=== PATIENT | female | born 1965 | race Caucasian/White ===

== ENCOUNTER → 2020-03-04 13:44 | Outpatient (BNVA) | payer MEDICAID, SELFPAY | PROVIDERS: Family Provider Nurse Practitioner Family; Visit Provider Specialist | DX: G40.309 Generalized idiopathic epilepsy and epileptic syndromes, not intractable, without status epilepticus (principal); K76.0 Fatty (change of) liver, not elsewhere classified | CPT/HCPCS: 99213 ==

== ENCOUNTER → 2020-03-12 13:04 | Outpatient (BNVA) | payer MEDICAID, SELFPAY | PROVIDERS: Family Provider Nurse Practitioner Family; Visit Provider Specialist | DX: G40.309 Generalized idiopathic epilepsy and epileptic syndromes, not intractable, without status epilepticus (principal) | CPT/HCPCS: 95816 ==

== ENCOUNTER 2020-08-12 18:56 | Emergency (ER) | payer MEDICAID, SELFPAY ==
[2020-08-12 19:04] VITALS: BP 140/99; PULSE 104; RESP 18; TEMP 36.4; O2SAT 99; BMI 25.7
--- NOTE | 2020-08-12 19:32 | XR_ITS ---
WS: [id number] Portable AP upright chest, 08/12/2020 Clinical Data: sob Comparison: None. Findings: No nodules, masses or effusions are seen. The heart is normal. The pulmonary vascularity is not increased. No pneumonia or pneumothorax is seen. XR/XR chest 1V portable [id number] Impression: Negative chest.
--- NOTE | 2020-08-12 20:40 | W.ED.COVID ---
HPI - COVID General: Chief Complaint: COVID symptoms Stated Complaint: SOB,weakness,nausea,vomiting Time Seen by Provider: 08/12/20 20:39 Triage information: Has fever, cough or shortness of breath. Exposure to COVID + person last 14 days History of Present Illness: HPI Narrative: Patient is a 55-year-old female comes to the ED with upper respiratory symptoms. Patient says symptoms started about 9 days ago. Her son lives with her tested positive for COVID-19, but patient has not testing yet. She has had symptoms of nasal drainage and congestion, dry cough, nausea/emesis and diarrhea. Patient says she is vomited multiple times over the last 9 days. She says today she felt the worst she has felt the last 9 days. She says she felt a little short of breath and felt like her heart was racing a little. She describes her shortness of breath as feeling like a weights on her chest. She says she has not been eating and drinking as much since she has been feeling sick. Denies any dysuria or hematuria or blood in the stool. Endorses having a low fever 1 day out of the last 9 days. Denies history of blood clots. MD complaint: reported COVID exposure (Her son who she lives with tested positive) COVID 19 common symptoms: positive chills, non-productive cough, dyspnea, throat pain, nasal congestion, nausea, vomiting and diarrhea; negative fever(s), productive cough, fatigue or headache(s) COVID 19 other sytmptoms: negative chest pain COVID Results: SARS-CoV-2 RNA (RT-PCR) Pending 08/12/20 21:20 08/12/20 Review of Systems Const: Reports: chills and change in appetite (Decreased); Denies: fever(s) or fatigue Eyes: Denies: change in vision or eye discomfort ENMT: Reports: throat pain, nasal discharge and nasal congestion; Denies: odynophagia Card: Reports: palpitations (Episode of heart racing during the day today. It has since resolved.); Denies: chest pain, edema, swelling of feet/ankles, dyspnea on exertion or orthopnea Resp: Reports: dyspnea and non-productive cough; Denies: productive cough GI: Reports: nausea, vomiting and diarrhea; Denies: abdominal pain, constipation or hematochezia : Denies: flank pain, dysuria or hematuria Musc: Denies: neck pain, back pain or extremity swelling Skin/Breast: Denies: rash or new lesions Neuro: Denies: headache(s), numbness in extremities or weakness in extremities PFSH ED PFSH: Family History Other CAD (coronary artery disease) Hypertension Social History Smoking and tobacco status: never smoked Physical Exam Const: COMMON NORMALS: no acute distress, patient oriented x3, healthy appearing and alert GENERAL APPEARANCE: cooperative and comfortable HENMT: COMMON NORMALS: normocephalic and Normal external nose present HEAD & SCALP: normocephalic NOSE: Normal external nose present; no Nasal discharge present MOUTH: moist mucous membranes abnormal (mild) THROAT: posterior oropharynx normal and uvula midline Eye: COMMON NORMALS: Equal, round and reactive pupils present PUPIL: Yes Equal, round and reactive pupils present Neck/C-Spine: COMMON NORMALS: supple GENERAL: Yes normal visual inspection Resp: COMMON NORMALS: normal respiratory effort, No retractions, No use of accessory muscles and clear to auscultation bilaterally EFFORT & INSPECTION: Yes able to speak in complete sentences, No tachypneic, No respiratory distress and No labored AUSCULTATION: clear to auscultation bilaterally Cardio: COMMON NORMALS: regular rate, regular rhythm, S1 normal heart sound present, S2 normal heart sound present, No gallops present (Cardio), No clicks present (Cardio), No murmurs present (Cardio) and Peripheral pulses 2+ throughout RATE: regular rate RHYTHM: regular rhythm HEART SOUNDS: S1 normal heart sound present and S2 normal heart sound present PERIPHERAL PULSES: Peripheral pulses 2+ throughout GI: COMMON NORMALS: Normal to inspection, nondistended, normoactive bowel sounds present, Soft to palpation, non-tender and no masses PALPATION: Yes Soft to palpation : COMMON NORMALS: Yes no CVA tenderness BLADDER/KIDNEY EXAM: Yes no CVA tenderness Back/Pelvis: COMMON NORMALS: no CVA tenderness Extremity: COMMON NORMALS: normal to inspection and no pedal edema Neuro: COMMON NORMALS: patient oriented x3 and moves all extremities SENSORIUM/ORIENTATION: Yes alert Skin: GENERAL SKIN EXAM: dry skin Course ED course: Patient is a 55-year-old female comes to the ED with shortness of breath, nausea and vomiting for the past 9 days. She describes shortness of breath is a weight on her chest. Patient signed room she lives with tested positive for COVID-19. Physical exam showed some dry mucous membranes and patient's lungs were clear to auscultation bilaterally and no signs of respiratory distress. CBC and CMP were unremarkable. Lipase 62. Chest x-ray showed no acute findings. EKG showed normal sinus tachycardia with no ST segment elevation or depression seen. Troponin 6, [facility] Cov[facility] lab pending. Patient's heart rate was tacky and around the 110-120 range when I was checking on her. O2 sat 99% on room air and respirations 16. With IV fluids and Zofran patient said her symptoms were improving but she still had some mild shortness of breath but is improving. I then ordered a D-dimer to rule out PE. D-dimer was not elevated and at 0.52. Patient says she is feeling better and I discharged her with a diagnosis of viral syndrome and close contact to Covid positive patient. She was given self quarantine instructions and told to contact [facility] in the next 2 to 3 days or [facility] will contact her about Covid results. I sent her home with a prescription for Zofran for nausea. Return to ED precautions given. Follow-up with PCP in 7 to 10 days for reevaluation. Patient understood and agreed with plan. Reevaluation(s): Reevaluation #1: After IV fluids and Zofran patient says her symptoms have improved. Shortness of breath has improved but it is still there. Her heart rate was sitting around 110-120 when I was in the room. I told her going to add D-dimer lab to rule out PE. Time: 22:38 Vital Signs: Vital signs: Vital Signs Temperature 97.5 F L 08/12/20 19:04 Pulse Rate 89 08/12/20 23:52 Respiratory Rate 16 08/12/20 23:52 Blood Pressure 123/76 08/12/20 23:52 Pulse Oximetry 99 08/12/20 23:52 MDM - COVID Lab Data Attestation: I reviewed the patient's lab results. Result diagrams: 08/12/20 21:20 08/12/20 21:20 Labs: Lab Results 08/12/20 08/12/20 08/12/20 Range/Units 21:20 21:20 21:20 WBC 8.5 (4.0-10.0) 10^3/uL RBC 4.71 (4.1-5.3) 10^6/uL Hgb 13.1 (11.5-15.3) g/dL Hct 40.7 (37.0-47.0) % MCV 86.4 (81-99) fL MCH 27.8 L (28.0-34.0) pg MCHC 32.2 (30.0-36.0) g/dL RDW 12.6 (12.1-15.1) % Plt Count 377 (130-400) 10^3/cmm MPV 9.2 (7.4-10.4) fL Neut % (Auto) 63.3 % Lymph % (Auto) 28.6 % [place] % (Auto) 4.3 % Eos % (Auto) 2.9 % Baso % (Auto) 0.5 % Neut # (Auto) 5.39 (1.8-7.7) 10^3/uL Lymph # (Auto) 2.4 (0.8-4.8) 10^3/uL [place] # (Auto) 0.4 (0.2-0.9) 10^3/uL Eos # (Auto) 0.3 (0.0-0.8) 10^3/uL Baso # (Auto) 0.0 (0.0-0.1) 10^3/uL Nucleated RBC % (auto) 0 % Nucleated RBCs # 0.0 /100WBC D-Dimer (0-0.59) ug/mIFEU Sodium 138 (136-145) mmol/L Potassium 3.7 (3.5-5.1) mmol/L Chloride 103 (98-107) mmol/L Carbon Dioxide 26 (22-29) mmol/L Anion Gap 12.7 (5-19) BUN 12 (6-20) mg/dL Creatinine 0.6 (0.5-0.9) mg/dL GFR Calculation 104.6 (90-130) mL/min Glucose 98 (65-115) mg/dL Calculated Osmolality 286 (285-295) mOsm/kg Calcium 9.7 (8.5-10.5) mg/dL Total Bilirubin 0.2 (0.15-1.2) mg/dL AST 17 (0-32) U/L ALT 17 (0-33) U/L Alkaline Phosphatase 139 H (35-105) IU/L Troponin T Gen 5 ng/L 6 (0-10) ng/L Total Protein 6.9 (6.6-8.7) g/dL Albumin 4.5 (3.5-5.2) g/dL Globulin 2.4 (1.3-4.6) g/dL Lipase 62 H (13-60) U/L HCG, Qual (Negative) 08/12/20 08/12/20 Range/Units 21:20 21:20 WBC (4.0-10.0) 10^3/uL RBC (4.1-5.3) 10^6/uL Hgb (11.5-15.3) g/dL Hct (37.0-47.0) % MCV (81-99) fL MCH (28.0-34.0) pg MCHC (30.0-36.0) g/dL RDW (12.1-15.1) % Plt Count (130-400) 10^3/cmm MPV (7.4-10.4) fL Neut % (Auto) % Lymph % (Auto) % [place] % (Auto) % Eos % (Auto) % Baso % (Auto) % Neut # (Auto) (1.8-7.7) 10^3/uL Lymph # (Auto) (0.8-4.8) 10^3/uL [place] # (Auto) (0.2-0.9) 10^3/uL Eos # (Auto) (0.0-0.8) 10^3/uL Baso # (Auto) (0.0-0.1) 10^3/uL Nucleated RBC % (auto) % Nucleated RBCs # /100WBC D-Dimer 0.52 (0-0.59) ug/mIFEU Sodium (136-145) mmol/L Potassium (3.5-5.1) mmol/L Chloride (98-107) mmol/L Carbon Dioxide (22-29) mmol/L Anion Gap (5-19) BUN (6-20) mg/dL Creatinine (0.5-0.9) mg/dL GFR Calculation (90-130) mL/min Glucose (65-115) mg/dL Calculated Osmolality (285-295) mOsm/kg Calcium (8.5-10.5) mg/dL Total Bilirubin (0.15-1.2) mg/dL AST (0-32) U/L ALT (0-33) U/L Alkaline Phosphatase (35-105) IU/L Troponin T Gen 5 ng/L (0-10) ng/L Total Protein (6.6-8.7) g/dL Albumin (3.5-5.2) g/dL Globulin (1.3-4.6) g/dL Lipase (13-60) U/L HCG, Qual Negative (Negative) COVID Results: SARS-CoV-2 RNA (RT-PCR) Pending 08/12/20 21:20 08/12/20 Imaging Data CXR: Attestation: I personally reviewed and interpreted this imaging study as follows: My impression: Chest x-ray showed no acute findings. EKG Data EKG 1: Attestation: I personally reviewed and interpreted this EKG as follows: EKG interpretation date: 08/12/20 Interpretation: Sinus tachycardia, heart rate 106, no ST segment elevation or depression seen. Discharge Plan Discharge Patient Disposition: Home Clinical Impression: Viral syndrome, Close exposure to severe acute respiratory syndrome coronavirus 2 (SARS-CoV-2) Condition: Stable Prescriptions: New Zofran 4 mg tablet 4 mg PO Q8H Qty: 20 RF: 0 No Action multivitamin Tablet 1 tab PO DAILY RF: 0 lamotrigine [Lamictal] 100 mg tablet 100 mg PO BID Qty: 60 RF: 11 zonisamide [Zonegran] 100 mg capsule 600 mg PO DAILY 30 Days Qty: 180 RF: 11 Discharge Orders: Discharge Order (Routine); Ordered 08/12/20 Ordered By: Vince Varela Referrals: Vielka Smith, AIR SAW OPERATOR [Primary Care Provider] - Discharge Diet: Advance as tolerated Discharge Activity: Increase activity as tolerated Patient Instructions: Viral Syndrome (ED) Activity Restrictions/Additional Instructions: Follow-up with medical provider as directed in 7-10 days. COVID testing was performed and sent to lab and results will be back in 2 to 3 days. Self quarantine for the next 3 days or up to 12 days pending on COVID testing results. [place] [facility] [place] 2 [place] 3 days to get results or [facility] will contact you with results. Take ibuprofen or Tylenol for fevers. Drink plenty of fluids and stay hydrated. Symptom management with [id number] cough and nasal decongestant meds. Return to the ER or your medical provider if condition worsens. Please read and understand discharge instructions. If any questions, please ask. Coding Level of Care Code ED Perinatal Social Worker for Rae Fwd Exam Comprehensive
--- NOTE | 2020-08-12 20:52 | ECG_ITS ---
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 Measurements Intervals Lewis Rate: 106 P: 55 NH: 189 QRS: 50 QRSD: 95 T: 7 QT: 332 QTc: 443 Interpretive Statements SINUS TACHYCARDIA LOW QRS VOLTAGE IN PRECORDIAL LEADS [QRS DEFLECTION < 1.0 mV IN CHEST LEADS] POSSIBLE RIGHT VENTRICULAR CONDUCTION DELAY [RSR (QR) IN V1/V2] NONSPECIFIC ST & T-WAVE ABNORMALITY ABNORMAL RHYTHM ECG No previous ECG available for comparison Electronically Signed On 08-14-2020 20:10:50 AVIATION SURVIVAL TECHNICIAN by Gian Otoole M.D. [id number]
[2020-08-12] MEDS: ondansetron 2 mg/ML SDV 2 mL 4 MG IVP (21:29)
[2020-08-12] MEDS: sodium chloride 0.9% 1,000 ML 999 ML IV (21:29)
[2020-08-12 21:35] VITALS: BP 129/93; PULSE 99; RESP 18; O2SAT 99
[2020-08-12 21:36] LABS: Basophils % 0.5 %; Eosinophils # 0.3 10^3/uL (0.0-0.8); Eosinophils % 2.9 %; Hematocrit 40.7 % (37.0-47.0); Hemoglobin 13.1 g/dL (11.5-15.3); Lymphocytes # 2.4 10^3/uL (0.8-4.8); Lymphocytes % 28.6 %; Mean Corpuscular HGB Conc 32.2 g/dL (30.0-36.0); Mean Corpuscular Hemoglobin 27.8 pg (28.0-34.0); Mean Corpuscular Volume 86.4 fL (81-99); Mean Platelet Volume 9.2 fL (7.4-10.4); Monocytes # 0.4 10^3/uL (0.2-0.9); Monocytes % 4.3 %; Neutrophils # 5.39 10^3/uL (1.8-7.7); Neutrophils % 63.3 %; Nucleated Red Blood Cells % 0 %; Platelet Count 377 10^3/cmm (130-400); Red Blood Count 4.71 10^6/uL (4.1-5.3); Red Cell Distribution Width 12.6 % (12.1-15.1); White Blood Count 8.5 10^3/uL (4.0-10.0)
[2020-08-12 21:54] LABS: Alanine Aminotransferase 17 U/L (0-33); Albumin Level 4.5 g/dL (3.5-5.2); Anion Gap 12.7 (5-19); Aspartate Amino Transferase 17 U/L (0-32); Blood Urea Nitrogen 12 mg/dL (6-20); Calcium 9.7 mg/dL (8.5-10.5); Carbon Dioxide 26 mmol/L (22-29); Chloride 103 mmol/L (98-107); Creatinine Clr Calc Pharmacy 102.7693; Globulin 2.4 g/dL (1.3-4.6); Glomerular Filtration Rate 104.6 mL/min (90-130); Glucose 98 mg/dL (65-115); Osmolality Calculated 286 mOsm/kg (285-295); Potassium 3.7 mmol/L (3.5-5.1); Sodium 138 mmol/L (136-145); Total Bilirubin 0.2 mg/dL (0.15-1.2); Total Protein 6.9 g/dL (6.6-8.7)
[2020-08-12 21:56] LABS: Troponin T (5th) Once 6 ng/L (0-10)
[2020-08-12 22:12] LABS: HCG, Serum Qual Negative (Negative)
[2020-08-12 22:23] LABS: Alkaline Phosphatase 139 IU/L (35-105); Lipase 62 U/L (13-60)
[2020-08-12 22:47] VITALS: BP 125/81; O2SAT 100
[2020-08-12 23:11] LABS: D Dimer 0.52 ug/mIFEU (0-0.59)
[2020-08-12 23:52] VITALS: BP 123/76; PULSE 89; RESP 16; O2SAT 99
[2020-08-15 10:28] LABS: Quest SARS-CoV-2 RNA DETECTED (NOT DETECTED)
--- NOTE | 2020-08-15 17:20 | PC.NURSE ---
Pt called and notified of positive COVID result.
== END 2020-08-12 23:53 | disposition home or self-care (01) ==
PROVIDERS: Emergency Provider Physician Assistant; PCP Nurse Practitioner Family
DX: U07.1 COVID-19 (principal)
CPT/HCPCS: 12345; 71045; 80053; 83690; 84484; 84703; 85025; 85378; 87635; 93005; 96361; 96374; 96375; 99283; 99284; J2405; J7030

== ENCOUNTER → 2021-03-03 13:54 | Outpatient (BNVA) | payer MEDICAID, SELFPAY | PROVIDERS: Visit Provider Specialist | DX: G40.309 Generalized idiopathic epilepsy and epileptic syndromes, not intractable, without status epilepticus (principal); K76.0 Fatty (change of) liver, not elsewhere classified; N64.59 Other signs and symptoms in breast | CPT/HCPCS: 99214 ==

== ENCOUNTER 2021-03-03 16:10 | Outpatient (CLI) | payer MEDICAID, SELFPAY ==
[2021-03-03 16:34] LABS: Basophils % 0.4 %; Eosinophils # 0.2 10^3/uL (0.0-0.8); Hematocrit 43.6 % (37.0-47.0); Lymphocytes # 2.4 10^3/uL (0.8-4.8); Lymphocytes % 24.7 %; Mean Corpuscular HGB Conc 32.1 g/dL (30.0-36.0); Mean Corpuscular Hemoglobin 27.9 pg (28.0-34.0); Mean Corpuscular Volume 86.9 fL (81-99); Mean Platelet Volume 9.6 fL (7.4-10.4); Monocytes # 0.5 10^3/uL (0.2-0.9); Monocytes % 4.7 %; Nucleated Red Blood Cells % 0 %; Platelet Count 317 10^3/cmm (130-400); Red Blood Count 5.02 10^6/uL (4.1-5.3); Red Cell Distribution Width 12.6 % (12.1-15.1); White Blood Count 9.9 10^3/uL (4.0-10.0)
[2021-03-03 17:28] LABS: Alanine Aminotransferase 24 U/L (0-33); Albumin Level 4.4 g/dL (3.5-5.2); Alkaline Phosphatase 153 IU/L (35-105); Anion Gap 13.9 (5-19); Aspartate Amino Transferase 22 U/L (0-32); Blood Urea Nitrogen 14 mg/dL (6-20); Calcium 8.9 mg/dL (8.5-10.5); Carbon Dioxide 24 mmol/L (22-29); Chloride 106 mmol/L (98-107); Glomerular Filtration Rate 87.5 mL/min (90-130); Glucose 91 mg/dL (65-115); Osmolality Calculated 290 mOsm/kg (285-295); Potassium 3.9 mmol/L (3.5-5.1); Sodium 140 mmol/L (136-145); Thyroid Stimulating Hormone 3.59 uIU/mL (0.27-4.20); Total Bilirubin 0.3 mg/dL (0.15-1.2); Total Protein 7.4 g/dL (6.6-8.7)
== END 2021-03-03 16:11 | disposition home or self-care (01) ==
PROVIDERS: Visit Provider Specialist
DX: G40.309 Generalized idiopathic epilepsy and epileptic syndromes, not intractable, without status epilepticus (principal)
CPT/HCPCS: 36415; 80053; 84443; 85025

== ENCOUNTER → 2021-03-24 12:56 | Outpatient (BNVA) | payer MEDICAID, SELFPAY | PROVIDERS: Visit Provider Specialist | DX: G40.309 Generalized idiopathic epilepsy and epileptic syndromes, not intractable, without status epilepticus (principal) | CPT/HCPCS: 95816 ==

== ENCOUNTER 2021-03-25 13:06 | Outpatient (CLI) | payer MEDICAID, SELFPAY ==
--- NOTE | 2021-03-25 13:00 | MM_ITS ---
WS: [id number] SCREENING DIGITAL MAMMOGRAM WITH CAD HISTORY: N64.59 - Other signs and symptoms in breast COMPARISON: 06/30/2016 Bilateral CC and MLO views submitted. Computer aided detection analyzed. Breast composition: The breasts are almost entirely fatty. No suspicious masses, microcalcifications or architectural distortion. MM/[place] [id number] IMPRESSION: BI-RADS: 1-Negative FOLLOW UP: 1 Year Follow-up
--- NOTE | 2021-03-25 13:45 | MR_ITS ---
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 COMPARISON: 05/24/2013 TECHNIQUE: Diffusion imaging, multiplanar T1, T2 and FLAIR imaging obtained. No evidence for acute infarct or hemorrhage. Curtis-white matter differentiation is normal. There are a few scattered T2 and FLAIR signal hyperintensities in the white matter. Linear area of in creased signal in the LEFT tirado radiata was also present on the prior study. No polyps gyral or joaquin rogyria. No ectopia of the curtis matter. Symmetric stable appearance of the temporal horns bilaterally . No sclerosis or atrophy. Ventricles and extra-axial spaces are normal. No inferior displacement of cerebellar tonsils. The sella turcica and pituitary gland are unremarkabl e. Dural venous sinuses and [place] demonstrate no abnormality on this unenhanced studies. Paranasal sinuses: Clear. Mastoid air cells: Normal. Calvarium and scalp: Intact. MR/MR head wo con* [id number] IMPRESSION: 1. Stable noncontrast head CT since 05/24/2013. LEFT parietal subcortical white matter linear T2 hyperintense is unchanged. 2. No hemorrhage or volume loss. 3. Symmetric appearance of the hippocampal formations.
== END 2021-03-25 13:07 | disposition home or self-care (01) ==
LOC: RADSHAW 13:09
PROVIDERS: Visit Provider Specialist
DX: Z12.31 Encounter for screening mammogram for malignant neoplasm of breast (principal); G40.309 Generalized idiopathic epilepsy and epileptic syndromes, not intractable, without status epilepticus
CPT/HCPCS: 70551; 77067

== ENCOUNTER → 2021-03-29 09:17 | Outpatient (BNVA) | payer MEDICAID, SELFPAY | PROVIDERS: Visit Provider Specialist | DX: G40.309 Generalized idiopathic epilepsy and epileptic syndromes, not intractable, without status epilepticus (principal); Z71.89 Other specified counseling | CPT/HCPCS: 99214; 99215 ==

== ENCOUNTER 2021-04-18 09:40 | Emergency (ER) | payer MEDICAID, SELFPAY ==
--- NOTE | 2021-04-18 09:44 | XRR_ITS ---
PROCEDURE INFORMATION: Exam: XR Chest Exam date and time: 04/18/2021 9:44 AM Age: 55 years old Clinical indication: Pain; Chest pressure; Additional info: Cough TECHNIQUE: Imaging protocol: XR of the chest. Views: 1 view. COMPARISON: CR XR chest 1V portable [id number] 08/12/2020 7:32 PM FINDINGS: Lungs: Unremarkable. No consolidation. Pleural spaces: Unremarkable. No pleural effusion. No pneumothorax. Heart/Mediastinum: Unremarkable. No cardiomegaly. Bones/joints: Unremarkable. XR/XR chest 1V portable [id number] IMPRESSION: No acute findings.
[2021-04-18 09:45] VITALS: BP 161/101; PULSE 103; RESP 18; TEMP 37.1; O2SAT 100; BMI 26.6
--- NOTE | 2021-04-18 09:45 | ECG_ITS ---
[facility] Test Date: 2021-04-18 Pat Name: Desiree Koch Department: Room: Gender: Female Logistics Engineering Manager: : 1965 Requested By: Shahzad Huerta Order Number: [id number] Samanta MD: Sharon Reaves M.D. Measurements Intervals Max Rate: 89 P: 58 AL: 186 QRS: 34 QRSD: 89 T: 30 QT: 369 QTc: 450 Interpretive Statements SINUS RHYTHM NONSPECIFIC ST & T-WAVE ABNORMALITY Compared to ECG 08/12/2020 21:27:55 Sinus tachycardia no longer present T-wave abnormality still present Electronically Signed On 04-18-2021 20:09:57 CDT by Sharon Reaves M.D. [id number]
--- NOTE | 2021-04-18 09:53 | W.ED.GENADLT ---
HPI - General Adult General: Chief complaint: Chest Pain Stated complaint: Chest Pain, weak, Time Seen by Provider: 04/18/21 09:49 History of Present Illness: HPI narrative: This patient is a 55-year-old female who presents to the emergency department complaint of irregular heartbeat chest pain. Shortness of breath. Patient states that happened last night when she getting up to go the bathroom. Then happened again this morning and felt sudden issue or that she could not breathe well and her heart was beating fast. Patient has a long history of seizures but does not have any cardiac history. Will do medical evaluation treat as needed Onset (ago): minute(s) Location: chest Radiation: non-radiation Severity: moderate Associated symptoms: Reports chest pain and palpitations; Deny dyspnea, headache(s), nausea, rash or vomiting Review of Systems General: Reports: 10 or more systems reviewed and unremarkable except in HPI and below Const: Denies: fever(s), chills, body aches or fatigue Eyes: Denies: change in vision or blurry vision ENMT: Denies: throat pain, hoarseness or mouth pain Card: Reports: chest pain and palpitations; Denies: irregular heart rhythm, edema, swelling of feet/ankles or lightheadedness Resp: Denies: dyspnea, productive cough, non-productive cough, wheezing or pain on inspiration GI: Denies: abdominal pain, nausea or vomiting : Denies: flank pain, difficulty voiding, dysuria, urinary frequency, urinary urgency or urinary hesitancy Musc: Denies: neck pain, back pain, extremity pain, extremity swelling, joint pain, joint swelling, joint redness, joint warmth or limited range of motion Skin/Breast: Denies: rash, pruritus, erythema or skin tenderness Neuro: Denies: headache(s), numbness in extremities or weakness in extremities Psych: Denies: anxiety or depression PFSH ED PFSH: Family History Other CAD (coronary artery disease) Hypertension Social History Smoking and tobacco status: never smoked Alcohol intake: never History of recent travel: No Physical Exam Const: COMMON NORMALS: no acute distress, average body habitus, patient oriented x3, no limitations, healthy appearing, alert and well nourished HENMT: COMMON NORMALS: normocephalic, atraumatic, hearing grossly normal bilaterally, external ears normal, EAC's normal, TM's normal bilaterally, Normal external nose present, Normal nasal mucous membranes and turbinates present, moist oral mucous membranes, oropharynx normal, dentition normal and gingiva normal HEAD & SCALP: normocephalic and atraumatic NOSE: Normal external nose present and Normal nasal mucous membranes and turbinates present EXTERNAL EAR: Yes external ears normal EXTERNAL AUDITORY CANAL: EAC's normal TYMPANIC MEMBRANE: TM's normal bilaterally Neck/C-Spine: COMMON NORMALS: full ROM, no lymphadenopathy, supple, no meningeal signs, no JVD, Thyroid normal and No carotid bruits THYROID: Thyroid normal Chest: COMMONS NORMALS: normal inspection of the chest, normal palpation of entire chest wall, normal inspection of the breasts and normal palpation of the breasts Breast/axilla inspection: Yes normal inspection of the breasts BREAST/AXILLA PALPATION: Yes normal palpation of the breasts Resp: COMMON NORMALS: normal respiratory effort, No retractions, No use of accessory muscles, clear to auscultation bilaterally and percussion normal AUSCULTATION: clear to auscultation bilaterally PERCUSSION: percussion normal Cardio: COMMON NORMALS: no JVD, regular rate, regular rhythm, S1 normal heart sound present, S2 normal heart sound present, No gallops present (Cardio), No clicks present (Cardio), No murmurs present (Cardio), No rub (Cardio) and Peripheral pulses 2+ throughout RATE: regular rate RHYTHM: regular rhythm HEART SOUNDS: S1 normal heart sound present and S2 normal heart sound present PERIPHERAL PULSES: Peripheral pulses 2+ throughout GI: COMMON NORMALS: Normal to inspection, nondistended, normoactive bowel sounds present, Soft to palpation, non-tender, No hepatosplenomegaly present, no masses and no bruits PALPATION: Yes Soft to palpation and Yes No hepatosplenomegaly present Back/Pelvis: COMMON NORMALS: thoracic and lumbar spine normal to inspection, no thoracic nor lumbar tenderness, thoraco-lumbar ROM normal and straight leg raise negative bilaterally Extremity: COMMON NORMALS: normal to inspection, full ROM, capillary refill normal, no joint enlargement, no clubbing, cyanosis or edema, no calf tenderness and no pedal edema Neuro: COMMON NORMALS: patient oriented x3 SENSORIUM/ORIENTATION: Yes alert MENINGEAL SIGNS: Yes no meningeal signs Course ED course: Negative evaluation in the emergency department for any acute findings. Patient is to continue all medications and follow-up with PCP in 2 to 3 days. Patient is discharged Vital Signs: Vital signs: Vital Signs Temperature 98.7 F 04/18/21 09:45 Pulse Rate 103 H 04/18/21 09:45 Respiratory Rate 18 04/18/21 09:45 Blood Pressure 161/101 04/18/21 09:45 Pulse Oximetry 96 04/18/21 11:00 MDM - General Adult MDM Narrative: Medical decision making narrative: This patient is a 55-year-old female who presents to the emergency department complaint of irregular heartbeat chest pain. Shortness of breath. Patient states that happened last night when she getting up to go the bathroom. Then happened again this morning and felt sudden issue or that she could not breathe well and her heart was beating fast. Patient has a long history of seizures but does not have any cardiac history. Will do medical evaluation treat as needed Negative evaluation in the emergency department for any acute findings. Patient is to continue all medications and follow-up with PCP in 2 to 3 days. Patient is discharged Medical Records: Attestation: I reviewed the patient's medical records. Lab Data: Attestation: I reviewed the patient's lab results. Labs: Lab Results 04/18/21 04/18/21 04/18/21 Range/Units 10:50 10:50 10:55 WBC 9.7 (4.0-10.0) 10^3/ uL RBC 4.69 (4.1-5.3) 10^6/u L Hgb 13.3 (11.5-15.3) g/dL Hct 41.0 (37.0-47.0) % MCV 87.4 (81-99) fL MCH 28.4 (28.0-34.0) pg MCHC 32.4 (30.0-36.0) g/dL RDW 12.8 (12.1-15.1) % Plt Count 279 (130-400) 10^3/c mm MPV 9.8 (7.4-10.4) fL Neut % (Auto) 75.8 % Lymph % (Auto) 18.1 % [place] % (Auto) 3.8 % Eos % (Auto) 1.8 % Baso % (Auto) 0.3 % Neut # (Auto) 7.35 (1.8-7.7) 10^3/u L Lymph # (Auto) 1.8 (0.8-4.8) 10^3/u L [place] # (Auto) 0.4 (0.2-0.9) 10^3/u L Eos # (Auto) 0.2 (0.0-0.8) 10^3/u L Baso # (Auto) 0.0 (0.0-0.1) 10^3/u L Nucleated RBC % (a uto) 0 % Nucleated RBCs # 0.0 /100WBC PT (12.1-14.9) SECO NDS INR (0.8-1.2) APTT (23.9-36.7) SECO NDS D-Dimer (0-0.59) ug/mIFE U Sodium (136-145) mmol/L Potassium (3.5-5.1) mmol/L Chloride (98-107) mmol/L Carbon Dioxide (22-29) mmol/L Anion Gap (5-19) BUN (6-20) mg/dL Creatinine (0.5-0.9) mg/dL GFR Calculation (90-130) mL/min Glucose (65-115) mg/dL Calculated Osmolal ity (285-295) mOsm/k g Calcium (8.5-10.5) mg/dL Total Bilirubin (0.15-1.2) mg/dL AST (0-32) U/L ALT (0-33) U/L Alkaline Phosphata se (35-105) IU/L Troponin T Baselin e (0-10) ng/L NT-Pro-B Natriuret Pep (0-125) pg/mL Total Protein (6.6-8.7) g/dL Albumin (3.5-5.2) g/dL Globulin (1.3-4.6) g/dL Urine Color Straw (Yellow) Urine Appearance Clear (CLEAR) Urine pH 6 (5-7) Ur Specific Gravit y 1.015 (1.005-1.030) Urine Protein Neg (Negative) Urine Glucose (UA) Norm (Normal) Urine Ketones Negative (Negative) Urine Blood Neg (Negative) Urine Nitrate Negative (Negative) Urine Bilirubin Neg (Negative) Urine Urobilinogen Norm (Negative) mg/dL Ur Leukocyte [place] ase Negative (Negative) Urine Opiates Scre en Negative (Negative) ng/mL Ur Barbiturates Sc reen Negative (Negative) ng/mL Ur Phencyclidine S crn Negative (Negative) ng/mL Ur Amphetamines Sc reen Negative (Negative) ng/mL U Benzodiazepines Scrn Negative (Negative) ng/mL Urine Cocaine Scre en Negative (Negative) ng/mL U Marijuana (THC) Screen Positive H (Negative) ng/mL 04/18/21 04/18/21 04/18/21 Range/Units 10:55 10:55 10:55 WBC (4.0-10.0) 10^3/ uL RBC (4.1-5.3) 10^6/u L Hgb (11.5-15.3) g/dL Hct (37.0-47.0) % MCV (81-99) fL MCH (28.0-34.0) pg MCHC (30.0-36.0) g/dL RDW (12.1-15.1) % Plt Count (130-400) 10^3/c mm MPV (7.4-10.4) fL Neut % (Auto) % Lymph % (Auto) % [place] % (Auto) % Eos % (Auto) % Baso % (Auto) % Neut # (Auto) (1.8-7.7) 10^3/u L Lymph # (Auto) (0.8-4.8) 10^3/u L [place] # (Auto) (0.2-0.9) 10^3/u L Eos # (Auto) (0.0-0.8) 10^3/u L Baso # (Auto) (0.0-0.1) 10^3/u L Nucleated RBC % (a uto) % Nucleated RBCs # /100WBC PT 13.40 (12.1-14.9) SECO NDS INR 0.99 (0.8-1.2) APTT 31.5 (23.9-36.7) SECO NDS D-Dimer 0.41 (0-0.59) ug/mIFE U Sodium 138 (136-145) mmol/L Potassium 3.7 (3.5-5.1) mmol/L Chloride 107 (98-107) mmol/L Carbon Dioxide 23 (22-29) mmol/L Anion Gap 11.7 (5-19) BUN 15 (6-20) mg/dL Creatinine 0.7 (0.5-0.9) mg/dL GFR Calculation 87.5 L (90-130) mL/min Glucose 103 (65-115) mg/dL Calculated Osmolal ity 287 (285-295) mOsm/k g Calcium 9.0 (8.5-10.5) mg/dL Total Bilirubin 0.3 (0.15-1.2) mg/dL AST 14 (0-32) U/L ALT 13 (0-33) U/L Alkaline Phosphata se 145 H (35-105) IU/L Troponin T Baselin e 6 (0-10) ng/L NT-Pro-B Natriuret Pep 210 H (0-125) pg/mL Total Protein 6.5 L (6.6-8.7) g/dL Albumin 4.3 (3.5-5.2) g/dL Globulin 2.2 (1.3-4.6) g/dL Urine Color (Yellow) Urine Appearance (CLEAR) Urine pH (5-7) Ur Specific Gravit y (1.005-1.030) Urine Protein (Negative) Urine Glucose (UA) (Normal) Urine Ketones (Negative) Urine Blood (Negative) Urine Nitrate (Negative) Urine Bilirubin (Negative) Urine Urobilinogen (Negative) mg/dL Ur Leukocyte [place]ba ase (Negative) Urine Opiates Scre en (Negative) ng/mL Ur Barbiturates Sc reen (Negative) ng/mL Ur Phencyclidine S crn (Negative) ng/mL Ur Amphetamines Sc reen (Negative) ng/mL U Benzodiazepines Scrn (Negative) ng/mL Urine Cocaine Scre en (Negative) ng/mL U Marijuana (THC) Screen (Negative) ng/mL Imaging Data^: CXR: Attestation: I personally reviewed and interpreted this imaging study as follows: Radiologist's impression: IMPRESSION: No acute findings. EKG Data^: EKG 1: Attestation: I personally reviewed and interpreted this EKG as follows: EKG interpretation date: 04/18/21 EKG interpretation time: 11:00 Prior EKG tracings: not available for review Interpretation: Sinus rhythm with nonspecific ST changes heart rate 89 Computer generated interpretation: Chest X-Ray 04/18/21 09:44 IMPRESSION: No acute findings. Discharge Plan Discharge Patient Disposition: Home Clinical Impression: Atypical chest pain, Dyspnea Condition: Stable Prescriptions: No Action multivitamin Tablet 1 tab PO DAILY RF: 0 zonisamide [Zonegran] 100 mg capsule 600 mg PO DAILY 30 Days Qty: 180 RF: 5 lamotrigine [Lamictal] 100 mg tablet 150 mg PO BID Qty: 90 RF: 5 Zofran 4 mg tablet 4 mg PO Q8H Qty: 20 RF: 0 Discharge Orders: Discharge ED (Routine); Ordered 04/18/21 Ordered By: Shahzad Huerta Discharge Diet: Advance as tolerated Discharge Activity: Resume usual activity Patient Instructions: Opioid Safety Activity Restrictions/Additional Instructions: Negative evaluation in the emergency department. Continue all home medications. Follow-up with your primary care physician in 2 to 3 days. Return to the emergency department if needed if symptoms fail to improve or worsen Coding Level of Care Code ED Legal Support Assistant for Chg Fwd Exam Comprehensive
[2021-04-18 11:00] VITALS: O2SAT 96
[2021-04-18 11:11] LABS: Basophils % 0.3 %; Eosinophils # 0.2 10^3/uL (0.0-0.8); Eosinophils % 1.8 %; Hemoglobin 13.3 g/dL (11.5-15.3); Lymphocytes # 1.8 10^3/uL (0.8-4.8); Lymphocytes % 18.1 %; Mean Corpuscular HGB Conc 32.4 g/dL (30.0-36.0); Mean Corpuscular Hemoglobin 28.4 pg (28.0-34.0); Mean Corpuscular Volume 87.4 fL (81-99); Mean Platelet Volume 9.8 fL (7.4-10.4); Monocytes # 0.4 10^3/uL (0.2-0.9); Monocytes % 3.8 %; Neutrophils # 7.35 10^3/uL (1.8-7.7); Neutrophils % 75.8 %; Nucleated Red Blood Cells % 0 %; Platelet Count 279 10^3/cmm (130-400); Red Blood Count 4.69 10^6/uL (4.1-5.3); Red Cell Distribution Width 12.8 % (12.1-15.1); White Blood Count 9.7 10^3/uL (4.0-10.0)
[2021-04-18 11:12] LABS: Add Urine Microscopic? NO; Charge for UA Resulting for Rev
[2021-04-18] MEDS: sodium chloride 0.9% 500 ML IV (11:17)
[2021-04-18 11:22] LABS: Bilirubin Urine Neg (Negative); Blood Urine Neg (Negative); Glucose Urine UA Norm (Normal); Ketones Urine Negative (Negative); Leukocyte Esterase Urine Negative (Negative); Nitrate Urine Negative (Negative); Protein Urine Neg (Negative); Specific Gravity, Urine 1.015 (1.005-1.030); Urine Appearance Clear (CLEAR); Urine Color Straw (Yellow); Urobilinogen Urine Norm (Negative); pH Urine 6 (5-7)
[2021-04-18 11:31] LABS: Amphetamines Screen Urine Negative (Negative); Barbiturates Screen Urine Negative (Negative); Benzodiazepines Screen Urine Negative (Negative); Cocaine Screen Urine Negative (Negative); Opiate Screen Urine Negative (Negative); PCP Screen Urine Negative (Negative); THC Screen Urine Positive (Negative)
[2021-04-18 11:32] LABS: INR 0.99 (0.8-1.2)
[2021-04-18 11:33] LABS: Partial Thromboplastin Time 31.5 SECONDS (23.9-36.7)
[2021-04-18 11:35] LABS: D Dimer 0.41 ug/mIFEU (0-0.59)
[2021-04-18 11:39] LABS: Troponin(5th) Baseline 6 ng/L (0-10)
--- NOTE | 2021-04-18 11:45 | ECG_ITS ---
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 Measurements Intervals [place] Rate: 89 P: 42 [place]: 189 QRS: 14 QRSD: 91 T: 16 QT: 370 QTc: 452 Interpretive Statements SINUS RHYTHM POSSIBLE RIGHT VENTRICULAR CONDUCTION DELAY [RSR (QR) IN V1/V2] WARNING: DATA QUALITY MAY AFFECT INTERPRETATION Compared to ECG 04/18/2021 11:00:49 T-wave abnormality no longer present Electronically Signed On 04-18-2021 20:20:18 CDT by Sharon Reaves M.D. [id number]
[2021-04-18 11:49] LABS: Alanine Aminotransferase 13 U/L (0-33); Albumin Level 4.3 g/dL (3.5-5.2); Alkaline Phosphatase 145 IU/L (35-105); Anion Gap 11.7 (5-19); Aspartate Amino Transferase 14 U/L (0-32); Blood Urea Nitrogen 15 mg/dL (6-20); Carbon Dioxide 23 mmol/L (22-29); Chloride 107 mmol/L (98-107); Globulin 2.2 g/dL (1.3-4.6); Glomerular Filtration Rate 87.5 mL/min (90-130); Glucose 103 mg/dL (65-115); NT Pro B Type Natriuretic Pept 210 pg/mL (0-125); Osmolality Calculated 287 mOsm/kg (285-295); Potassium 3.7 mmol/L (3.5-5.1); Sodium 138 mmol/L (136-145); Total Bilirubin 0.3 mg/dL (0.15-1.2); Total Protein 6.5 g/dL (6.6-8.7)
== END 2021-04-18 13:45 | disposition home or self-care (01) ==
PROVIDERS: Emergency Provider Emergency Medicine
DX: R07.89 Other chest pain (principal); R06.00 Dyspnea, unspecified
CPT/HCPCS: 71045; 80053; 80306; 81003; 83880; 84484; 85025; 85378; 85610; 85730; 93005; 96360; 99284; J7040

== ENCOUNTER → 2021-04-29 14:50 | Outpatient (BNVA) | payer MEDICAID, SELFPAY | PROVIDERS: PCP Specialist; Visit Provider Nurse Practitioner Family | DX: Z20.822 Contact with and (suspected) exposure to COVID-19 (principal); J06.9 Acute upper respiratory infection, unspecified | CPT/HCPCS: 87635 ==

== ENCOUNTER → 2021-07-19 10:38 | Outpatient (BNVA) | payer MEDICAID, SELFPAY | PROVIDERS: PCP Specialist; Visit Provider Nurse Practitioner Family | DX: Z20.822 Contact with and (suspected) exposure to COVID-19 (principal); J06.9 Acute upper respiratory infection, unspecified | CPT/HCPCS: 87635 ==

== ENCOUNTER 2022-04-03 14:44 | Emergency (ER) | payer MEDICAID, SELFPAY ==
[2022-04-03 15:08] VITALS: BP 135/88; PULSE 93; RESP 16; TEMP 36.6; O2SAT 98; BMI 28.1
[2022-04-03 15:44] LABS: Basophils % 0.4 %; Eosinophils # 0.1 10^3/uL (0.0-0.8); Eosinophils % 0.6 %; Hematocrit 39.5 % (37.0-47.0); Hemoglobin 13.5 g/dL (11.5-15.3); Lymphocytes # 1.9 10^3/uL (0.8-4.8); Lymphocytes % 19.6 %; Mean Corpuscular HGB Conc 34.2 g/dL (30.0-36.0); Mean Corpuscular Volume 81.8 fl (81-99); Mean Platelet Volume 9.6 fL (7.4-10.4); Monocytes # 0.6 10^3/uL (0.2-0.9); Neutrophils # 7.08 10^3/uL (1.8-7.7); Neutrophils % 73.2 %; Nucleated Red Blood Cells % 0 %; Platelet Count 306 10^3/cmm (130-400); Red Blood Count 4.83 10^6/uL (4.1-5.3); Red Cell Distribution Width 12.1 % (12.1-15.1); White Blood Count 9.7 10^3/uL (4.0-10.0)
[2022-04-03 16:00] LABS: Alanine Aminotransferase 9 U/L (0-33); Albumin Level 4.2 g/dL (3.5-5.2); Alkaline Phosphatase 162 IU/L (35-105); Anion Gap 18.1 (5-19); Aspartate Amino Transferase 14 U/L (0-32); Blood Urea Nitrogen 12 mg/dL (6-20); Calcium 8.8 mg/dL (8.5-10.5); Carbon Dioxide 18 mmol/L (22-29); Chloride 102 mmol/L (98-107); Globulin 3.2 g/dL (1.3-4.6); Glomerular Filtration Rate 65.2 mL/min (90-130); Glucose 89 mg/dL (65-115); Lipase 21 U/L (13-60); Osmolality Calculated 279 mOsm/kg (285-295); Potassium 3.1 mmol/L (3.5-5.1); Sodium 135 mmol/L (136-145); Total Bilirubin 0.3 mg/dL (0.15-1.2); Total Protein 7.4 g/dL (6.6-8.7)
--- NOTE | 2022-04-03 16:00 | ED_ITS ---
HPI - Abdominal Pain General: Chief Complaint: Abdominal Pain Stated Complaint: Abd pain, d/n Time Seen by Provider: 04/03/22 15:13 History of Present Illness: Patient is a 56-year-old female comes in the ED with abdominal pain, nausea and diarrhea. Symptoms started approximately 1 week ago. She has been having diarrhea multiple times a day that she describes as runny and yellow. She says whenever she eats anything it goes right through her. She has been drinking a lot of water over the past week. Abdominal pain is located in the right upper quadrant of her abdomen. Patient has history of appendectomy and cholecystectomy. Endorses nausea and decreased appetite. denies any fevers, chills, upper respiratory symptoms, vomiting, dysuria or hematuria. Associated Symptoms: Reports diarrhea and nausea; Denies chills, constipation, dysuria, fever(s), hematochezia, hematuria and vomiting Review of Systems Const: Denies: fever(s), chills or fatigue Eyes: Denies: change in vision or eye discomfort ENMT: Denies: throat pain, odynophagia, nasal discharge or nasal congestion Card: Denies: chest pain, palpitations, edema, swelling of feet/ankles, dyspnea on exertion or orthopnea Resp: Denies: dyspnea, productive cough or non-productive cough GI: Reports: abdominal pain, nausea and diarrhea; Denies: vomiting, constipation or hematochezia : Denies: flank pain, dysuria or hematuria Musc: Denies: neck pain, back pain or extremity swelling Skin/Breast: Denies: rash or new lesions Neuro: Denies: headache(s), numbness in extremities or weakness in extremities PFS ED PFSH: Medical History Epilepsy Surgical History H/O section H/O tubal ligation H/O: hysterectomy History of appendectomy History of cholecystectomy Family History Sister CAD (coronary artery disease) Brother Stroke CAD (coronary artery disease) Myocardial infarction FH: CABG (coronary artery bypass surgery) Mother Myocardial infarction Other Hypertension Social History Alcohol intake: never History of recent travel: No Physical Exam Const: COMMON NORMALS: no acute distress, patient oriented x3, healthy appearing and alert GENERAL APPEARANCE: cooperative and comfortable HENMT: COMMON NORMALS: normocephalic HEAD & SCALP: normocephalic MOUTH: Normal oral and palatal mucosa present THROAT: posterior oropharynx normal and uvula midline Neck/C-Spine: COMMON NORMALS: supple GENERAL: Yes normal visual inspection Resp: COMMON NORMALS: normal respiratory effort, No retractions, No use of accessory muscles and clear to auscultation bilaterally AUSCULTATION: clear to auscultation bilaterally Cardio: COMMON NORMALS: regular rate, regular rhythm, S1 normal heart sound present, S2 normal heart sound present, No gallops present (Cardio), No clicks p resent (Cardio), No murmurs present (Cardio) and Peripheral pulses 2+ throughout RATE: regular rate RHYTHM: regular rhythm HEART SOUNDS: S1 normal heart sound present and S2 normal heart sound present PERIPHERAL PULSES: Peripheral pulses 2+ throughout GI: COMMON NORMALS: Normal to inspection, nondistended, normoactive bowel sounds present, Soft to palpation and no masses PALPATION: Yes Soft to palpation and Yes Tenderness to palpation present (GI) (Generalized right side abdominal tenderness.) Details: RLQ and RUQ : COMMON NORMALS: Yes no CVA tenderness BLADDER/KIDNEY EXAM: Yes no CVA tenderness Back/Pelvis: COMMON NORMALS: no CVA tenderness Extremity: COMMON NORMALS: normal to inspection Neuro: COMMON NORMALS: patient oriented x3 SENSORIUM/ORIENTATION: Yes alert GAIT: Yes Normal gait present Skin: GENERAL SKIN EXAM: dry skin Course Vital Signs: Vital signs: Vital Signs Temperature 97.9 F 04/03/22 15:08 Pulse Rate 93 04/03/22 15:08 Respiratory Rate 16 04/03/22 15:08 Blood Pressure 135/88 04/03/22 15:08 Pulse Oximetry 98 04/03/22 15:08 MDM - Abdominal Pain Medical Decision Making Patient is a 56-year-old female comes in the ED with abdominal pain, nausea and diarrhea. Symptoms started approximately 1 week ago. Past surgical history of appendectomy and cholecystectomy. Vitals are stable. Exam of patient shows some generalized right sided abdominal tenderness. Rest of exam is benign. Labs were unremarkable. CT of abdomen pelvis showed no acute findings. She is able to keep p.o. fluids down. patient likely has viral gastroenteritis and she was stable for discharge home. She was discharged home with a prescription for dicyclomine and Zofran. She was told to follow-up with her PCP in the next week for reevaluation. Return to ED precautions given. Patient understood and agreed with plan. Lab Data I reviewed the patient's lab results. : 04/03/22 15:30 04/03/22 15:30 Labs/Radiology: Radiology Impressions Abdomen/Pelvis CT 04/03/22 16:06 IMPRESSION: 1. Low stool burden and evidence of small bowel surgery in the lower abdomen/pelvis. No acute bowel finding or obstruction is otherwise. Somewhat limited assessment due to lack of contrast. 2. Probable mild hepatic steatosis. No cirrhosis. 3. Tiny hiatal hernia. Laboratory Results WBC 9.7 10^3/uL (4.0-10.0) 04/03/22 15:30 RBC 4.83 10^6/uL (4.1-5.3) 04/03/22 15:30 Hgb 13.5 g/dL (11.5-15.3) 04/03/22 15:30 Hct 39.5 % (37.0-47.0) 04/03/22 15:30 MCV 81.8 fl (81-99) 04/03/22 15:30 MCH 28.0 pg (28.0-34.0) 04/03/22 15:30 MCHC 34.2 g/dL (30.0-36.0) 04/03/22 15:30 RDW 12.1 % (12.1-15.1) 04/03/22 15:30 Plt Count 306 10^3/cmm (130-400) 04/03/22 15:30 MPV 9.6 fL (7.4-10.4) 04/03/22 15:30 Neut % (Auto) 73.2 % 04/03/22 15:30 Lymph % (Auto) 19.6 % 04/03/22 15:30 [place] % (Auto) 6.0 % 04/03/22 15:30 Eos % (Auto) 0.6 % 04/03/22 15:30 Baso % (Auto) 0.4 % 04/03/22 15:30 Neut # (Auto) 7.08 10^3/uL (1.8-7.7) 04/03/22 15:30 Lymph # (Auto) 1.9 10^3/uL (0.8-4.8) 04/03/22 15:30 [place] # (Auto) 0.6 10^3/uL (0.2-0.9) 04/03/22 15:30 Eos # (Auto) 0.1 10^3/uL (0.0-0.8) 04/03/22 15:30 Baso # (Auto) 0.0 10^3/uL (0.0-0.1) 04/03/22 15:30 Nucleated RBC % (auto) 0 % 04/03/22 15:30 Nucleated RBCs # 0.0 /100WBC 04/03/22 15:30 Sodium 135 mmol/L (136-145) L 04/03/22 15:30 Potassium 3.1 mmol/L (3.5-5.1) L 04/03/22 15:30 Chloride 102 mmol/L (98-107) 04/03/22 15:30 Carbon Dioxide 18 mmol/L (22-29) L 04/03/22 15:30 Anion Gap 18.1 (5-19) 04/03/22 15:30 BUN 12 mg/dL (6-20) 04/03/22 15:30 Creatinine 0.9 mg/dL (0.5-0.9) 04/03/22 15:30 GFR Calculation 65.2 mL/min (90-130) L 04/03/22 15:30 Glucose 89 mg/dL (65-115) 04/03/22 15:30 Calculated Osmolality 279 mOsm/kg (285-295) L 04/03/22 15:30 Calcium 8.8 mg/dL (8.5-10.5) 04/03/22 15:30 Total Bilirubin 0.3 mg/dL (0.15-1.2) 04/03/22 15:30 AST 14 U/L (0-32) 04/03/22 15:30 ALT 9 U/L (0-33) 04/03/22 15:30 Alkaline Phosphatase 162 IU/L (35-105) H 04/03/22 15:30 Total Protein 7.4 g/dL (6.6-8.7) 04/03/22 15:30 Albumin 4.2 g/dL (3.5-5.2) 04/03/22 15:30 Globulin 3.2 g/dL (1.3-4.6) 04/03/22 15:30 Lipase 21 U/L (13-60) 04/03/22 15:30 Urine Color Straw (Yellow) 04/03/22 16:50 Urine Appearance Clear (CLEAR) 04/03/22 16:50 Urine pH 6 (5-7) 04/03/22 16:50 Ur Specific [place] 1.005 (1.005-1.030) 04/03/22 16:50 Urine Protein Neg (Negative) 04/03/22 16:50 Urine Glucose (UA) Norm (Normal) 04/03/22 16:50 Urine Ketones 1+ (Negative) H 04/03/22 16:50 Urine Blood Neg (Negative) 04/03/22 16:50 Urine Nitrate Negative (Negative) 04/03/22 16:50 Urine Bilirubin Neg (Negative) 04/03/22 16:50 Urine Urobilinogen Norm mg/dL (Negative) 04/03/22 16:50 Ur Leukocyte Esterase Negative (Negative) 04/03/22 16:50 Discharge Plan Discharge Patient Disposition: Home Clinical Impression: Viral gastroenteritis Condition: Stable Prescriptions: New dicyclomine 20 mg tablet 20 mg PO TID PRN (Reason: Abdominal cramping and diarrhea) Qty: 30 0RF ondansetron 4 mg tablet,disintegrating 4 mg PO Q8H PRN (Reason: nausea and vomiting) Qty: 20 0RF No Action Tylenol Ex Str Rapid Release 500 mg Tablet 1,000 mg PO Q6H PRN (Reason: Pain) 0RF Prilosec OTC 20 mg Tablet,Delayed Release (Dr/Ec) 20 mg PO .ONCE 0RF Zonegran 100 mg capsule 500 mg PO BEDTIME 0RF Lamictal 100 mg tablet 100 mg PO BID 0RF Discharge Orders: Discharge ED (Routine); Ordered 04/03/22 Ordered By: Vince Varela Referrals: Ebony Gibson MD [Primary Care Provider] - Discharge Diet: Advance as tolerated Discharge Activity: Increase activity as tolerated Patient Instructions: Gastroenteritis (DC), Viral Syndrome (ED) Activity Restrictions/Additional Instructions: Follow-up with medical provider as directed in the next 5 to 7 days for reevaluation. Take medications as prescribed. Drink plenty of fluids and stay hydrated. Return to the ER or your medical provider if condition worsens. Please read and understand discharge instructions. Thank you for choosing [facility] for your healthcare needs today. Please realize this is an emergency room and that we are providing you with a medical screening exam and this may not be complete and all inclusive of all the testing and or work up that you may need to determine your ailment or severity of your illness. It is very important that you follow up as instructed or that you return to the Emergency Department should you have concerns or if your condition changes or worsens in any way. Coding Level of Care Code ED Pyrometer Mechanic for Rae Pereyra Exam Comprehensive
--- NOTE | 2022-04-03 16:06 | CTR_ITS ---
PROCEDURE INFORMATION: Exam: CT Abdomen And Pelvis Without Contrast Exam date and time: 04/03/2022 4:50 PM Age: 56 years old Clinical indication: Abdominal pain; Localized; Right upper quadrant (ruq); Prior surgery; Surgery type: Gb, appy, hysto; Additional info: Right-sided abdominal pain with diarrhea and nausea TECHNIQUE: Imaging protocol: Computed tomography of the abdomen and pelvis without contrast. Radiation optimization: All CT scans at this facility use at least one of these dose optimization techniques: automated exposure control; mA and/or kV adjustment per patient size (includes targeted exams where dose is matched to clinical indication); or iterative reconstruction. COMPARISON: CT abdomen pelvis w con* [id number] 05/25/2016 10:55 PM RADIATION DOSE METRICS: Total DLP (mGy-cm): 1273.7 FINDINGS: Lungs: Calcified granuloma anterior right lung base. Diaphragm: Tiny hiatal hernia. Liver: Normal liver size without cirrhosis. Mild hepatic steatosis. Gallbladder and bile ducts: Prior cholecystectomy. Cholecystectomy clips. No abnormal bile duct dilatation. Pancreas: Normal. No ductal dilation. Spleen: Normal. No splenomegaly. Adrenal glands: Normal. No mass. Kidneys and ureters: No obstructing calculus. No hydronephrosis. Stomach and bowel: Evidence of distal small bowel surgical anastomotic sutures in the midline pelvis. No regional bowel obstruction or inflammatory response. Bowel wall assessment is otherwise suboptimally assessed due to lack of contrast. No pneumatosis. Low stool burden. Appendix: Prior appendectomy. Intraperitoneal space: Unremarkable. No free air. No significant fluid collection. Vasculature: No abdominal aortic aneurysm. Lymph nodes: No enlarged lymph nodes. Urinary bladder: Unremarkable as visualized. Reproductive: Prior hysterectomy. Bones/joints: No acute fracture. Soft tissues: No acute findings. CT/CT abdomen pelvis wo con [id number] IMPRESSION: 1. Low stool burden and evidence of small bowel surgery in the lower abdomen/pelvis. No acute bowel finding or obstruction is otherwise. Somewhat limited assessment due to lack of contrast. 2. Probable mild hepatic steatosis. No cirrhosis. 3. Tiny hiatal hernia.
[2022-04-03] MEDS: ondansetron 2 mg/ML SDV 2 mL 4 MG IVP (16:40)
[2022-04-03] MEDS: sodium chloride 0.9% 1,000 ML 999 ML IV (16:41)
[2022-04-03 17:29] LABS: Add Urine Microscopic? NO; Charge for UA Resulting for Rev
[2022-04-03 17:41] LABS: Bilirubin Urine Neg (Negative); Blood Urine Neg (Negative); Glucose Urine UA Norm (Normal); Ketones Urine 1+ (Negative); Leukocyte Esterase Urine Negative (Negative); Nitrate Urine Negative (Negative); Protein Urine Neg (Negative); Specific Gravity, Urine 1.005 (1.005-1.030); Urine Appearance Clear (CLEAR); Urine Color Straw (Yellow); Urobilinogen Urine Norm (Negative); pH Urine 6 (5-7)
== END 2022-04-03 18:53 | disposition home or self-care (01) ==
PROVIDERS: Emergency Provider Physician Assistant; PCP Specialist
DX: A08.4 Viral intestinal infection, unspecified (principal)
CPT/HCPCS: 74176; 80053; 81003; 83690; 85025; 96361; 96374; 99284; J2405; J7030

== ENCOUNTER → 2022-08-15 12:01 | Outpatient (BNVA) | payer MEDICAID, SELFPAY | PROVIDERS: Visit Provider Specialist | DX: G40.309 Generalized idiopathic epilepsy and epileptic syndromes, not intractable, without status epilepticus (principal); Z12.11 Encounter for screening for malignant neoplasm of colon | CPT/HCPCS: 99213 ==

== ENCOUNTER 2023-08-29 23:55 | Emergency (ER) | payer MEDICAID, SELFPAY ==
--- NOTE | 2023-08-29 23:56 | ECG_ITS ---
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 Measurements Intervals [facility] Rate: 95 P: 63 CA: 170 QRS: 65 QRSD: 88 T: 47 QT: 351 QTc: 443 Interpretive Statements SINUS RHYTHM NONSPECIFIC ST & T-WAVE ABNORMALITY Compared to ECG 04/18/2021 12:01:50 T-wave abnormality now present Electronically Signed On 08-31-2023 16:47:31 GAME SHOW HOST by Julee Mccarthy M.D. [id number]
--- NOTE | 2023-08-29 23:56 | XRR_ITS ---
PROCEDURE INFORMATION: Exam: XR Chest Exam date and time: 08/30/2023 12:17 AM Age: 58 years old Clinical indication: Other: Arrhythmia; Additional info: Cp TECHNIQUE: Imaging protocol: Radiologic exam of the chest. Views: 1 view. COMPARISON: CR XR chest 1V portable [id number] 04/18/2021 9:47 AM FINDINGS: Lungs: No consolidation. Pleural spaces: No large pleural effusion. No pneumothorax. Heart/Mediastinum: Unremarkable cardiomediastinal silhouette. Bones/joints: No acute abnormality. XR/XR chest 1V portable [id number] IMPRESSION: No acute findings.
[2023-08-30] VITALS: BP 148/86; PULSE 85; RESP 18; TEMP 35.9; O2SAT 99; BMI 27.4
--- NOTE | 2023-08-30 00:19 | ED_ITS ---
HPI - Arrhythmia/Palpitations 2 General: Chief Complaint: Arrhythmia/Palpitations Stated Complaint: CP Time Seen by Provider: 08/29/23 23:57 Source: patient Mode of arrival: ambulatory Limitations: no limitations History of Present Illness: 58-year-old female states that she has b een having some palpitations off and on for the last 6 months. States she has not seen her physician about this states that she started having them again they just lasted longer normal and had some slight nausea she denies any chest pain currently states they have improved denies any severe shortness of breath denies any fevers. Associated symptoms: Reports nausea; Deny vomiting Review of Systems 2 Const: Denies: fever(s), chills, body aches or change in appetite Eyes: Denies: blurry vision or eye discomfort ENMT: Denies: throat pain or dental pain Card: Reports: palpitations; Denies: chest pain Resp: Denies: dyspnea GI: Reports: nausea; Denies: abdominal pain, vomiting or diarrhea Musc: Denies: neck pain or back pain Skin/Breast: Denies: rash Neuro: Denies: headache(s) PFSH ED 2 PFSH: Medical History Epilepsy Surgical History H/O tubal ligation History of appendectomy H/O section H/O: hysterectomy History of cholecystectomy Family History Sister CAD (coronary artery disease) Brother Stroke CAD (coronary artery disease) Myocardial infarction FH: CABG (coronary artery bypass surgery) Mother Myocardial infarction Other Hypertension Social History Alcohol intake: never Substance/Drug Use: never Physical Exam 2 Const: COMMON NORMALS: no acute distress, patient oriented x3 and healthy appearing HENMT: COMMON NORMALS: normocephalic and atraumatic HEAD & SCALP: n ormocephalic and atraumatic Eye: COMMON NORMALS: Equal, round and reactive pupils present and EOMs intact bilaterally PUPIL: Yes Equal, round and reactive pupils present Neck/C-Spine: COMMON NORMALS: full ROM and supple Chest: COMMONS NORMALS: normal inspection of the chest Resp: COMMON NORMALS: normal respiratory effort and clear to auscultation bilaterally EFFORT & INSPECTION: Yes able to speak in complete sentences A USCULTATION: clear to auscultation bilaterally Cardio: COMMON NORMALS: regular rate, regular rhythm and No murmurs present (Cardio) RATE: regular rate RHYTHM: regular rhythm GI: COMMON NORMALS: Normal to inspection, nondistended, normoactive bowel sounds present, Soft to palpation, non-tender and no masses PALPATION: Yes Soft to palpation Extremity: COMMON NORMALS: normal to inspection and full ROM Neuro: COMMON NORMALS: patient oriented x3, moves all extremities and no focal motor deficits Psych: COMMON NORMALS: mental status grossly normal, Normal thought process present and cooperative THOUGHT PROCESS: Normal thought process present Skin: COMMON NORMALS: no rashes or lesions noted and no wounds GENERAL SKIN EXAM: no rashes or lesions noted Course 2 Vital Signs: Vital signs: Vital Signs Temperature 96.6 F L 08/30/23 00:00 Pulse Rate 82 08/30/23 00:36 Respiratory Rate 18 08/30/23 00:36 Blood Pressure 148/97 08/30/23 00:36 Pulse Oximetry 95 08/30/23 00:36 Oxygen Delivery Me thod Room Air 08/30/23 00:00 MDM - Arrhythmia/Palpitations Medical Decision Making Patient presents here with palpitations going on for months she has been well- appearing here heart rates normal troponins normal. She is to follow-up with her PCP she is return if worsening she has no signs of acute coronary syndrome. Medical Records I reviewed the patient's medical records. Lab Data I reviewed the patient's lab results. 08/30/23 00:20 08/30/23 00:20 Radiology Impressions Chest X-Ray 08/29/23 23:56 IMPRESSION: No acute findings. Laboratory Results WBC 9.32 10^3/uL (3.29-11.43) 08/30/23 00:20 RBC 5.04 10^6/uL (3.85-5.65) 08/30/23 00:20 Hgb 14.00 g/dL (11.27-16.99) 08/30/23 00:20 Hct 43.7 % (36-47) 08/30/23 00:20 MCV 86.7 fl (85-98) 08/30/23 00:20 MCH 27.8 pg (27-33) 08/30/23 00:20 MCHC 32.0 g/dL (30-55) 08/30/23 00:20 RDW 12.6 % (12.1-15.1) 08/30/23 00:20 Plt Count 299 10^3/cmm (157-399) 08/30/23 00:20 MPV 9.4 fL (7.4-10.4) 08/30/23 00:20 Neut % (Auto) 62.9 % 08/30/23 00:20 Lymph % (Auto) 29.5 % 08/30/23 00:20 [place] % (Auto) 4.5 % 08/30/23 00:20 Eos % (Auto) 2.6 % 08/30/23 00:20 Baso % (Auto) 0.4 % 08/30/23 00:20 Neut # (Auto) 5.86 10^3/uL (1.8-7.7) 08/30/23 00:20 Lymph # (Auto) 2.8 10^3/uL (0.8-4.8) 08/30/23 00:20 [place] # (Auto) 0.4 10^3/uL (0.2-0.9) 08/30/23 00:20 Eos # (Auto) 0.2 10^3/uL (0.0-0.8) 08/30/23 00:20 Baso # (Auto) 0.0 10^3/uL (0.0-0.1) 08/30/23 00:20 Nucleated RBC % (auto) 0 % 08/30/23 00:20 Nucleated RBCs # 0.0 /100WBC 08/30/23 00:20 Sodium 140 mmol/L (136-145) 08/30/23 00:20 Potassium 3.5 mmol/L (3.5-5.1) 08/30/23 00:20 Chloride 105 mmol/L (98-107) 08/30/23 00:20 Carbon Dioxide 22 mmol/L (22-29) 08/30/23 00:20 Anion Gap 16.5 (5-19) 08/30/23 00:20 BUN 12 mg/dL (6-20) 08/30/23 00:20 Creatinine 0.8 mg/dL (0.5-0.9) 08/30/23 00:20 Calculated Osmolality 291 mOsm/kg (285-295) 08/30/23 00:20 Calcium 9.3 mg/dL (8.5-10.5) 08/30/23 00:20 Total Bilirubin 0.2 mg/dL (0.15-1.2) 08/30/23 00:20 AST 15 U/L (0-32) 08/30/23 00:20 ALT 13 U/L (0-33) 08/30/23 00:20 Troponin T Baseline < 6 ng/L (0-10) 08/30/23 00:20 Total Protein 7.2 g/dL (6.6-8.7) 08/30/23 00:20 Albumin 4.3 g/dL (3.5-5.2) 08/30/23 00:20 Globulin 2.9 g/dL (1.3-4.6) 08/30/23 00:20 Lipase 50 U/L (13-60) 08/30/23 00:20 All radiology interpretation(s) finalized by discharge EKG Data EKG 1: I personally reviewed and interpreted this EKG as follows: EKG interpretation date: 08/29/23 EKG interpretation time: 23:58 Interpretation: nsr hr [address] or t wave abnormalities qrs 88 qtc 404 Other EKG comments: Chest X-Ray 08/29/23 23:56 IMPRESSION: No acute findings. Discharge Plan Discharge Patient Disposition: Home Clinical Impression: Palpitations Condition: Stable Prescriptions: No Action azithromycin 250 mg tablet See Rx Instructions PO .COMPLEX Qty: 6 0RF Rx Instructions: take 500 mg today (day 1), then 250 mg for 4 days (days 2-5) PO prednisone 20 mg tablet 20 mg PO DAILY 5 Days Qty: 5 0RF lamotrigine 100 mg tablet See Rx Instructions .ROUTE .COMPLEX Qty: 60 3RF Dose Instruction: Take 1 tablet by mouth twice daily Rx Instructions: Take 1 tablet by mouth twice daily zonisamide 100 mg capsule See Rx Instructions .ROUTE .COMPLEX Qty: 180 3RF Dose Instruction: TAKE 6 CAPSULES BY MOUTH ONCE DAILY Rx Instructions: TAKE 6 CAPSULES BY MOUTH ONCE DAILY Tylenol Ex Str Rapid Release 500 mg Tablet 1,000 mg PO Q6H PRN (Reason: Pain) Prilosec OTC 20 mg Tablet,Delayed Release (Dr/Ec) 20 mg PO .ONCE dicyclomine 20 mg tablet 20 mg PO TID PRN (Reason: Abdominal cramping and diarrhea) Qty: 30 0RF ondansetron 4 mg tablet,disintegrating 4 mg PO Q8H PRN (Reason: nausea and vomiting) Qty: 20 0RF Discharge Orders: Discharge ED (Routine); Ordered 08/30/23 Ordered By: Fan Sutherland Referrals: Vielka Smith FNP [Primary Care Provider] - 1-3 days Discharge Diet: Advance as tolerated Discharge Activity: Resume usual activity Patient Instructions: Heart Palpitations (ED) Coding Level of Care Code ED Director [facility]
[2023-08-30 00:28] LABS: Basophils % 0.4 %; Eosinophils # 0.2 10^3/uL (0.0-0.8); Eosinophils % 2.6 %; Hematocrit 43.7 % (36-47); Lymphocytes # 2.8 10^3/uL (0.8-4.8); Lymphocytes % 29.5 %; Mean Corpuscular Hemoglobin 27.8 pg (27-33); Mean Corpuscular Volume 86.7 fl (85-98); Mean Platelet Volume 9.4 fL (7.4-10.4); Monocytes # 0.4 10^3/uL (0.2-0.9); Monocytes % 4.5 %; Neutrophils # 5.86 10^3/uL (1.8-7.7); Neutrophils % 62.9 %; Nucleated Red Blood Cells % 0 %; Platelet Count 299 10^3/cmm (157-399); Red Blood Count 5.04 10^6/uL (3.85-5.65); Red Cell Distribution Width 12.6 % (12.1-15.1); White Blood Count 9.32 10^3/uL (3.29-11.43)
[2023-08-30 00:36] VITALS: BP 148/97; PULSE 82; RESP 18; O2SAT 95
[2023-08-30 00:45] LABS: Troponin(5th) Baseline < 6 ng/L (0-10)
[2023-08-30 00:51] LABS: Alanine Aminotransferase 13 U/L (0-33); Albumin Level 4.3 g/dL (3.5-5.2); Alkaline Phosphatase 198 U/L (35-105); Anion Gap 16.5 (5-19); Aspartate Amino Transferase 15 U/L (0-32); Blood Urea Nitrogen 12 mg/dL (6-20); Calcium 9.3 mg/dL (8.5-10.5); Carbon Dioxide 22 mmol/L (22-29); Chloride 105 mmol/L (98-107); Globulin 2.9 g/dL (1.3-4.6); Glomerular Filtration Rate 74.2 mL/min (90-130); Glucose 122 mg/dL (65-115); Lipase 50 U/L (13-60); Osmolality Calculated 291 mOsm/kg (285-295); Potassium 3.5 mmol/L (3.5-5.1); Sodium 140 mmol/L (136-145); Total Bilirubin 0.2 mg/dL (0.15-1.2); Total Protein 7.2 g/dL (6.6-8.7)
[2023-08-30 01:38] VITALS: BP 122/91; PULSE 80; RESP 27; O2SAT 97
== END 2023-08-30 01:42 | disposition home or self-care (01) ==
PROVIDERS: Emergency Provider Emergency Medicine; PCP Nurse Practitioner Family
DX: R00.2 Palpitations (principal)
CPT/HCPCS: 71045; 80053; 83690; 84484; 85025; 93005; 99285

== ENCOUNTER → 2023-11-28 09:18 | Outpatient (BNVA) | payer MEDICAID, SELFPAY | PROVIDERS: PCP Nurse Practitioner Family; Visit Provider Specialist | DX: N64.59 Other signs and symptoms in breast (principal); Z82.49 Family history of ischemic heart disease and other diseases of the circulatory system; G40.309 Generalized idiopathic epilepsy and epileptic syndromes, not intractable, without status epilepticus | CPT/HCPCS: 99214 ==

== ENCOUNTER 2024-02-27 09:29 | Outpatient (CLI) | payer MEDICAID, SELFPAY ==
[2024-02-27 10:07] VITALS: BMI 28.3
--- NOTE | 2024-02-27 10:07 | ECG_ITS ---
[facility] Test Date: 2024-02-27 Pat Name: Desiree Koch Department: Room: Gender: Female Medical Records Administrator: : 1965 Requested By: Ebony Gibson Order Number: [id number] Reading MD: Interpretive Statements Lung unchanged pre/post procedure; Intraprocedure shortess of breath; Symptoms resoled by discharge [id number]
--- NOTE | 2024-02-27 10:08 | NMCV_ITS ---
NM enrico perf SPECT r/s* [id number] Desiere Koch Age: 58 Gender: F : 1965 Exam Date: 02/27/2024 10:47 Ordering Phys: Ebony Gibson MD Technologist: CAMILA Evasn Exam Location: [facility] Indications: Family Hx CAD STRESS TEST [facility] IMAGE PROTOCOL Rest/Stress 1 Exercise Day Radiopharmaceutical Dose (mCi) Administration Site Administered by Rest: Tc-99m 10.5 IV CAMILA Evans Sestamibi Stress:Tc-99m 32.1 IV CAMILA Evans Sestamibi Rest: 27-Feb-2024 60 Discovery 630 Stress: 27-Feb-2024 15 Discovery 630 Radiopharmaceutical was injected at 85 % maximum heart rate. Images obtained in supine and prone position. SPECT RESULTS Technical Quality: Good Raw Data Analysis: N, Normal Image Corrections: No attenuation or motion correction applied Summed Stress Score: 0 Summed Rest Score: 7 Summed Difference Score: 0 PERFUSION FINDINGS SPECT images demonstrate homogeneous tracer distribution throughout the myocardium. FUNCTIONAL RESULTS (calculated via Gated SPECT) Stress Image LV EF (%): 87 Stress EDV (mL):47 TID: 0.64 Stress ESV (mL):6 FUNCTIONAL FINDINGS: There is normal left ventricular systolic function. IMPRESSIONS 1. Normal myocardial perfusion imaging with no evidence of ischemia 2. LV systolic function is normal Gian Otoole MD (Electronically Signed) Final Date: 01 Mar 2024 09:01 S
[2024-02-27 11:43] VITALS: BP 124/63; PULSE 88
== END 2024-02-27 09:30 | disposition home or self-care (01) ==
PROVIDERS: PCP Nurse Practitioner Family; Visit Provider Specialist
DX: R06.02 Shortness of breath (principal); R00.2 Palpitations
CPT/HCPCS: 36415; 78452; 93017; A9500

== ENCOUNTER 2024-07-25 14:33 | Emergency (ER) | payer MEDICAID, SELFPAY ==
[2024-07-25 14:50] VITALS: BP 145/81; PULSE 89; RESP 18; TEMP 36.7; O2SAT 96
--- NOTE | 2024-07-25 14:57 | ECG_ITS ---
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 Measurements Intervals [place] Rate: 88 P: 20 MI: 151 QRS: 21 QRSD: 89 T: 5 QT: 355 QTc: 431 Interpretive Statements SINUS RHYTHM NONSPECIFIC T-WAVE ABNORMALITY Compared to ECG 08/29/2023 23:58:15 No significant changes Electronically Signed On 07-25-2024 22:57:57 CDT by Sharon Reaves M.D. [id number]
--- NOTE | 2024-07-25 17:08 | XRR_ITS ---
PROCEDURE INFORMATION: Exam: XR Chest Exam date and time: 07/25/2024 5:52 PM Age: 59 years old Clinical indication: Pain; Chest pressure; Additional info: Chest pain TECHNIQUE: Imaging protocol: Radiologic exam of the chest. Views: 1 view. COMPARISON: CR XR chest 1V portable [id number] 08/30/2023 12:17 AM FINDINGS: Lungs: Unremarkable. No consolidation. Pleural spaces: Unremarkable. No pleural effusion. No pneumothorax. Heart/Mediastinum: Unremarkable. No cardiomegaly. Bones/joints: Unremarkable. XR/XR chest 1V portable [id number] IMPRESSION: No acute findings.
--- NOTE | 2024-07-25 17:10 | ED_ITS ---
HPI - SOB/Dyspnea 2 General: Chief Complaint: Shortness of Breath/Dyspnea Stated Complaint: side pain,sob,cough,high heart rate Time Seen by Provider: 07/25/24 17:06 History of Present Illness: HPI Narrative: 59-year-old who presents emergency room with left-sided chest pain and cough. She said this started after she went to [facility] recently. She said she hit her sides on some rides. But then she got a cough. This became worse. Left lateral chest pain with cough. Pleuritic. No fevers. No nausea or vomiting. Related Data Home Medications Medication Instructions Recorded Confirmed acetaminophen 500 mg tablet 1,000 mg PO Q6H PRN Pain 04/03/22 11/28/23 omeprazole magnesium 20 mg 20 mg PO .ONCE 04/03/22 11/28/23 tablet,delayed release (Prilosec OTC) Previous Rx's Medication Instructions Recorded dicyclomine 20 mg tablet 20 mg PO TID PRN Abdominal 04/03/22 cramping and diarrhea #30 tabs ondansetron 4 mg disintegrating 4 mg PO Q8H PRN nausea and 04/03/22 tablet vomiting #20 tabs azithromycin 250 mg tablet See Rx Instructions PO .COMPLEX #6 12/04/22 tabs prednisone 20 mg tablet 20 mg PO DAILY 5 days #5 tabs 12/04/22 lamotrigine 100 mg tablet See Rx Instructions .Route 02/28/24 .COMPLEX #60 tabs zonisamide 100 mg capsule See Rx Instructions .Route 02/28/24 .COMPLEX #180 caps azithromycin 250 mg tablet See Rx Instructions PO .COMPLEX #6 07/25/24 (Zithromax Z-Feng) tabs dexamethasone 6 mg tablet 6 mg PO DAILY 5 days #5 tabs 07/25/24 Allergies Allergy/AdvReac Type Severity Reaction Status Date / Time codeine Allergy Pruritus Verified 07/25/24 14:56 Penicillins Allergy Rash Verified 07/25/24 14:56 Review of Systems 2 Narrative: Constitutional symptoms: Negative except as documented in HPI. Skin symptoms: Negative except as documented in HPI. Eye symptoms: Negative except as documented in HPI. ENMT symptoms: Negative except as documented in HPI. Respiratory symptoms: Negative except as documented in HPI. Cardiovascular symptoms: Negative except as documented in HPI. Gastrointestinal symptoms: Negative except as documented in HPI. Genitourinary symptoms: Negative except as documented in HPI. Musculoskeletal symptoms: Negative except as documented in HPI. Neurologic symptoms: Negative except as documented in HPI. Psychiatric symptoms: Negative except as documented in HPI. Endocrine symptoms: Negative except as documented in HPI. PFSH ED 2 PFSH: Medical History Epilepsy Surgical History H/O tubal ligation History of appendectomy H/O section H/O: hysterectomy History of cholecystectomy Family History Sister CAD (coronary artery disease) Brother Stroke CAD (coronary artery disease) Myocardial infarction FH: CABG (coronary artery bypass surgery) Mother Myocardial infarction Other Hypertension Social History Alcohol intake: never Substance/Drug Use: never Physical Exam 2 Narrative: EXAM NARRATIVE: General: Alert, no acute distress. Skin: Warm, dry. Head: Normocephalic, atraumatic. Neck: Supple, trachea midline. Eye: Extraocular movements are intact. Ears, nose, mouth and throat: mucosa moist. Cardiovascular: Regular, Normal peripheral perfusion. Respiratory: Lungs are clear to auscultation, respirations are non-labored, breath sounds are equal, Symmetrical chest wall expansion. Gastrointestinal: Soft, Nontender, Non distended Musculoskeletal: Normal ROM, no deformity. Neurological: Alert and oriented, No focal neurological deficit observed. Psychiatric: Cooperative, appropriate mood & affect. Course 2 Vital Signs: Vital signs: Vital Signs Temperature 98.1 F 07/25/24 14:50 Pulse Rate 97 07/25/24 20:53 Respiratory Rate 18 07/25/24 14:50 Blood Pressure 149/95 07/25/24 20:53 Pulse Oximetry 92 07/25/24 20:53 Oxygen Delivery Me thod Room Air 07/25/24 14:50 MDM - SOB/Dyspnea Medical Decision Making Differential diagnosis for patient with chest pain includes but is not limited to and based on the above HPI, review of systems and physical exam: Pneumonia. unstable angina. angina. Acute coronary syndrome / NV. Pulmonary embolism. Costochondritis / musculoskeletal. Pleurisy. Pericarditis. Esophageal spasm. Pancreatis. Cholecystitis. Orders placed to evaluate differential diagnosis based on the above differential, HPI and physical exam Chest x-ray: No acute process. No infiltrate. No pneumothorax. This was reviewed and interpreted by myself the ER physician. Lab Review: Laboratory results were reviewed and interpreted by myself the emergency room physician. Lab work is unremarkable. Serial troponins were negative. I reviewed the patient's medical record. Reexamination: Patient remained stable. No increased work of breathing. No altered mental status. No focal motor deficits. Assessment and plan: Noncardiac chest pain Upper respiratory infection ? IM Decadron and IM Toradol in the emergency room. - Discharged home - Discussed plan with patient. Answered any questions. - Evaluation and treatment of this problem were appropriate in the emergency setting. Lab Data 07/25/24 17:50 07/25/24 17:50 Labs/Radiology: Radiology Impressions Chest X-Ray 07/25/24 17:08 IMPRESSION: No acute findings. Laboratory Results WBC 10.68 10^3/uL (3.29-11.43) 07/25/24 17:50 RBC 5.22 10^6/uL (3.85-5.65) 07/25/24 17:50 Hgb 14.40 g/dL (11.27-16.99) 07/25/24 17:50 Hct 44.2 % (36-47) 07/25/24 17:50 MCV 84.7 fl (85-98) L 07/25/24 17:50 MCH 27.6 pg (27-33) 07/25/24 17:50 MCHC 32.6 g/dL (30-55) 07/25/24 17:50 RDW 12.8 % (12.1-15.1) 07/25/24 17:50 Plt Count 334 10^3/cmm (157-399) 07/25/24 17:50 MPV 9.3 fL (7.4-10.4) 07/25/24 17:50 Neut % (Auto) 78.9 % 07/25/24 17:50 Lymph % (Auto) 13.8 % 07/25/24 17:50 [place] % (Auto) 4.4 % 07/25/24 17:50 Eos % (Auto) 2.2 % 07/25/24 17:50 Baso % (Auto) 0.4 % 07/25/24 17:50 Neut # (Auto) 8.44 10^3/uL (1.8-7.7) H 07/25/24 17:50 Lymph # (Auto) 1.5 10^3/uL (0.8-4.8) 07/25/24 17:50 [place] # (Auto) 0.5 10^3/uL (0.2-0.9) 07/25/24 17:50 Eos # (Auto) 0.2 10^3/uL (0.0-0.8) 07/25/24 17:50 Baso # (Auto) 0.0 10^3/uL (0.0-0.1) 07/25/24 17:50 Nucleated RBC % (auto) 0 % 07/25/24 17:50 Nucleated RBCs # 0.0 /100WBC 07/25/24 17:50 Sodium 140 mmol/L (136-145) 07/25/24 17:50 Potassium 4.1 mmol/L (3.5-5.1) 07/25/24 17:50 Chloride 105 mmol/L (98-107) 07/25/24 17:50 Carbon Dioxide 22 mmol/L (22-29) 07/25/24 17:50 Anion Gap 17.1 (5-19) 07/25/24 17:50 BUN 16 mg/dL (6-20) 07/25/24 17:50 Creatinine 0.7 mg/dL (0.5-0.9) 07/25/24 17:50 GFR Calculation 86.2 mL/min (90-130) L 07/25/24 17:50 Glucose 111 mg/dL (65-115) 07/25/24 17:50 Calculated Osmolality 292 mOsm/kg (285-295) 07/25/24 17:50 Calcium 9.4 mg/dL (8.5-10.5) 07/25/24 17:50 Total Bilirubin 0.2 mg/dL (0.15-1.2) 07/25/24 17:50 AST 14 U/L (0-32) 07/25/24 17:50 ALT 16 U/L (0-33) 07/25/24 17:50 Alkaline Phosphatase 209 U/L (35-105) H 07/25/24 17:50 Troponin T Baseline < 6 ng/L (0-10) 07/25/24 17:50 Troponin T 120 Minute 6.00 ng/L (0-10) 07/25/24 19:42 Delta Troponin T 0.72126 ABS# (0-10) 07/25/24 19:42 Total Protein 7.5 g/dL (6.6-8.7) 07/25/24 17:50 Albumin 4.7 g/dL (3.5-5.2) 07/25/24 17:50 Globulin 2.8 g/dL (1.3-4.6) 07/25/24 17:50 Coronavirus (PCR) Negative (Negative) 07/25/24 17:54 Influenza A (PCR) Negative (Negative) 07/25/24 17:54 Influenza Type B (PCR) Negative (Negative) 07/25/24 17:54 RSV (PCR) Negative (Negative) 07/25/24 17:54 All radiology interpretation(s) finalized by discharge Discharge Plan Discharge Patient Disposition: Home Clinical Impression: Acute upper respiratory infection, Non-cardiac chest pain Condition: Stable Prescriptions: New azithromycin [Zithromax Z-Feng] 250 mg tablet See Rx Instructions .ROUTE .COMPLEX Qty: 6 0RF Rx Instructions: For 250 mg dose pack: take 500 mg today (day 1), then 250 mg for 4 days (days 2-5) dexamethasone 6 mg tablet 6 mg PO DAILY 5 Days Qty: 5 0RF No Action azithromycin 250 mg tablet See Rx Instructions PO .COMPLEX Qty: 6 0RF Rx Instructions: take 500 mg today (day 1), then 250 mg for 4 days (days 2-5) PO prednisone 20 mg tablet 20 mg PO DAILY 5 Days Qty: 5 0RF lamotrigine 100 mg tablet See Rx Instructions .ROUTE .COMPLEX Qty: 60 5RF Dose Instruction: Take 1 tablet by mouth twice daily Rx Instructions: Take 1 tablet by mouth twice daily zonisamide 100 mg capsule See Rx Instructions .ROUTE .COMPLEX Qty: 180 5RF Dose Instruction: TAKE 6 CAPSULES BY MOUTH ONCE DAILY Rx Instructions: TAKE 6 CAPSULES BY MOUTH ONCE DAILY Tylenol Ex Str Rapid Release 500 mg Tablet 1,000 mg PO Q6H PRN (Reason: Pain) Prilosec OTC 20 mg Tablet,Delayed Release (Dr/Ec) 20 mg PO .ONCE dicyclomine 20 mg tablet 20 mg PO TID PRN (Reason: Abdominal cramping and diarrhea) Qty: 30 0RF ondansetron 4 mg tablet,disintegrating 4 mg PO Q8H PRN (Reason: nausea and vomiting) Qty: 20 0RF Discharge Orders: Discharge ED (Routine); Ordered 07/25/24 Ordered By: Thi Walter Referrals: Vielka Smith FNP [Primary Care Provider] - Discharge Diet: Usual diet Discharge Activity: Increase activity as tolerated Patient Instructions: Upper Respiratory Infection (ED), Noncardiac Chest Pain (ED) Activity Restrictions/Additional Instructions: Thank you for choosing [facility] for your healthcare needs today. Please realize this is an emergency room and that we are providing you with a medical screening exam and this may not be complete and all inclusive of all the testing and or work up that you may need to determine your ailment or severity of your illness. You have been screened and evaluated and felt safe for discharge. Health conditions do change or evolve sometimes and as such it is important that you follow up with your Primary Doctor to be re checked, 3-5 days is a general good time frame for follow up. 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
[2024-07-25 18:16] LABS: Basophils % 0.4 %; Eosinophils # 0.2 10^3/uL (0.0-0.8); Eosinophils % 2.2 %; Hematocrit 44.2 % (36-47); Lymphocytes # 1.5 10^3/uL (0.8-4.8); Lymphocytes % 13.8 %; Mean Corpuscular HGB Conc 32.6 g/dL (30-55); Mean Corpuscular Hemoglobin 27.6 pg (27-33); Mean Corpuscular Volume 84.7 fl (85-98); Mean Platelet Volume 9.3 fL (7.4-10.4); Monocytes # 0.5 10^3/uL (0.2-0.9); Monocytes % 4.4 %; Neutrophils # 8.44 10^3/uL (1.8-7.7); Neutrophils % 78.9 %; Nucleated Red Blood Cells % 0 %; Platelet Count 334 10^3/cmm (157-399); Red Blood Count 5.22 10^6/uL (3.85-5.65); Red Cell Distribution Width 12.8 % (12.1-15.1); White Blood Count 10.68 10^3/uL (3.29-11.43)
[2024-07-25 18:31] LABS: Troponin(5th) Baseline < 6 ng/L (0-10)
[2024-07-25 18:42] LABS: Alanine Aminotransferase 16 U/L (0-33); Albumin Level 4.7 g/dL (3.5-5.2); Alkaline Phosphatase 209 U/L (35-105); Anion Gap 17.1 (5-19); Aspartate Amino Transferase 14 U/L (0-32); Blood Urea Nitrogen 16 mg/dL (6-20); Calcium 9.4 mg/dL (8.5-10.5); Carbon Dioxide 22 mmol/L (22-29); Chloride 105 mmol/L (98-107); Creatinine Clr Calc Pharmacy 91.3029; Globulin 2.8 g/dL (1.3-4.6); Glomerular Filtration Rate 86.2 mL/min (90-130); Glucose 111 mg/dL (65-115); Osmolality Calculated 292 mOsm/kg (285-295); Potassium 4.1 mmol/L (3.5-5.1); Sodium 140 mmol/L (136-145); Total Bilirubin 0.2 mg/dL (0.15-1.2); Total Protein 7.5 g/dL (6.6-8.7)
[2024-07-25 18:47] LABS: Covid PCR NEGATIVE (Negative); Influenza A NEGATIVE (Negative); Influenza B NEGATIVE (Negative); Respiratory Syncytial Virus Ce NEGATIVE (Negative)
[2024-07-25] MEDS: ketorolac 30 mg/mL INJ IVP (19:33)
[2024-07-25] MEDS: dexamethasone 10 mg/mL INJ IVP (19:34)
[2024-07-25 20:00] VITALS: BP 147/99; PULSE 91; O2SAT 97
[2024-07-25 20:10] LABS: Troponin 5 2HR Delta 0.00001 ABS# (0-10)
[2024-07-25 20:53] VITALS: BP 149/95; PULSE 97; O2SAT 92
== END 2024-07-25 20:54 | disposition home or self-care (01) ==
PROVIDERS: Emergency Provider Emergency Medicine; PCP Nurse Practitioner Family
DX: J06.9 Acute upper respiratory infection, unspecified (principal); R07.89 Other chest pain
CPT/HCPCS: 0241U; 36415; 71045; 80053; 84484; 85025; 93005; 96374; 96375; 99285; J1100; J1885

== ENCOUNTER → 2024-11-27 09:45 | Outpatient (BNVA) | payer MEDICAID, SELFPAY | PROVIDERS: PCP Nurse Practitioner Family; Visit Provider Specialist | DX: N64.59 Other signs and symptoms in breast (principal); Z82.49 Family history of ischemic heart disease and other diseases of the circulatory system; R07.9 Chest pain, unspecified; G40.309 Generalized idiopathic epilepsy and epileptic syndromes, not intractable, without status epilepticus | CPT/HCPCS: 99213 ==

== ENCOUNTER 2025-06-16 14:52 | Emergency (ER) | payer MEDICAID, SELFPAY ==
--- OUTSIDE RECORDS SUMMARY | 2025-06-16 15:53 | XMS_ITS | Encounter Summary ---
Author Organization [facility] Address [address] [place] [address] Care Team Providers Care Tobacco Stemmer Name Role Phone Ramesh Lee MD Primary Care Provider [phone] Reason for Visit * Reason Comments Abdominal Pain Encounter Details Date Type Department Care Team (Late st Contact Info) Description 06/16/2025 3:53 PM CDT - Present Emergency [facility] Emergency Medicine [address] [place] [address] Social History Tobacco Use Types Packs/Day Years Used Date Smoking Tobacco: Never Smokeless Tobacco: Never Alcohol Use Standard Drinks/Week Comments Not Currently 0 (1 standard drink = 0.6 oz pur e alcohol) Comments No Sex and Gender Information Value Date Recorded Sex Assigned at Not on file 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 Gender Identity Not on file Sexual Orientation Not on file documented as of this encounter Last Filed Vital Signs Vital Sign Reading Time Taken Comments Blood Pressure 140/100 06/16/2025 3:57 PM CDT Pulse - - Temperature 37.1 C (98.7 F) 06/16/2025 3:57 PM CDT Respiratory Rate 18 06/16/2025 3:57 PM CDT Oxygen Saturation 97% 06/16/2025 3:57 PM CDT Inhaled Oxygen Concentration - - Weight 74.8 kg (165 lb) 06/16/2025 3:57 PM CDT Height 165.1 cm (5' 5 ) 06/16/2025 3:57 PM CDT Body Mass Index 27.46 06/16/2025 3:57 PM CDT documented in this encounter Plan of Treatment Upcoming Encounters Date Type Department Care Team (Late st Contact Info) Description 06/23/2025 5:00 PM CDT Office Visit [facility] Medicine [place] [address] [address] Ladan Haynes, [facility] [address] [address] documented as of this encounter Visit Diagnoses Not on filedocumented in this encounter Care Teams Tobacco Stemmer Relationship Specialty Start Date End Date Ramesh Lee MD [address] [address] PCP - General Family Practice 12/13/17 documented as of this encounter
--- OUTSIDE RECORDS SUMMARY | 2025-06-16 16:00 | XMS_ITS | Clinical Summary ---
Author Organization [facility] Address [address] [facility] Attn: [place] [address] Care Team Providers Care Radiologic Electronic Specialist Name Role Phone Ramesh Lee MD Primary Care Provider [phone] Allergies Active Allergy Reactions Criticality Noted Date Comments Codeine Itching Low 11/28/2017 Penicillins Hives High 10/13/2009 Medications cetirizine (ZyrTEC) 10 mg tabletIndication s:Allergic rhinitis, unspecified seasonality, unspecified trigger Take 1 tablet by mouth once daily 30 Tablet 2 1 Active lamoTRIgine (LaMICtal) 100 mg tablet Take 100 mg by mouth 2 times daily. 8 Active Zonisamide (ZONEGRAN) 100 mg capsule Take 600 mg by mouth daily at bedtime. 8 Active fluticasone propionate (FLONASE) 50 mcg/spray [place], Suspension nasal inhalerIndicatio ns:Allergic rhinitis, unspecified seasonality, unspecified trigger Administer 2 Sprays in each nostril daily. 16 Gram 1 3 Active meclizine (ANTIVERT) 12.5 mg tabletIndication s:Dizziness Take 1 Tablet (12.5 mg) by mouth 3 times daily as needed for Dizziness. 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 Gibson Etiology: Childhood Menigitis Encounters Date Type Department Care Team Description 06/16/2025 3:53 PM CDT - Present Emergency [facility] Emergency Medicine [address] [facility] [place] [address] [place] [id number] 06/03/2025 External Device Data [facility] Provider, Abstract 06/03/2025 External Device Data [facility] Provider, Abstract 05/29/2025 Telephone [facility] [address] [place] [id number] Ramesh Lee MD Appointment Correction from Last 3 Months Family History Medical History Relation Name Comments Heart Disease Brother Cancer Father Stomach CA (52) Heart Disease Sister Breast Cancer Neg Hx Colon Cancer Neg Hx Ovarian Cancer Neg Hx Relation Name Status Comments Brother Father Sister Social History Tobacco Use Types Packs/Day Years Used Date Smoking Tobacco: Never Smokeless Tobacco: Never Tobacco Cessation:Counseling Given: No Alcohol Use Standard Drinks/Week Comments Not Currently 0 (1 standard drink = 0.6 oz pur e alcohol) Comments No Sex and Gender Information Value Date Recorded Sex Assigned at Not on file 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 Gender Identity Not on file Sexual Orientation Not on file Last Filed Vital Signs Vital Sign Reading Time Taken Comments Blood Pressure 140/100 06/16/2025 3:57 PM CDT Pulse 84 08/30/2023 2:18 PM LINING BASTER Temperature 37.1 C (98.7 F) 06/16/2025 3:57 PM CDT Respiratory Rate 18 06/16/2025 3:57 PM CDT Oxygen Saturation 97% 06/16/2025 3:57 PM CDT Inhaled Oxygen Concentration - - Weight 74.8 kg (165 lb) 06/16/2025 3:57 PM CDT Height 165.1 cm (5' 5 ) 06/16/2025 3:57 PM CDT Body Mass Index 27.46 06/16/2025 3:57 PM CDT Plan of Treatment Upcoming Encounters Date Type Department Care Team (Late st Contact Info) Description 06/23/2025 5:00 PM CDT Office Visit [facility] [address] [phone] [place], [facility] [address] [address] Health Maintenance Due Date Last Done Comments DTAP/TDAP/TD VACCINES (1 - Tdap) 1986 HEPATITIS B VACCINES (1 of 3 - 19+ 3-dose series) 1986 Preventative Visit-Managed Medicaid 1986 BREAST CANCER SCREENING 2007 FIT-DNA Q 3 years 2012 FIT/FOBT Q 1 year 2012 Flex Sig/CT Colonography Q 5 years 2012 ZOSTER VACCINE (1 of 2) 2017 INFLUENZA VACCINE (#1) 2025 3, 10/12/2022, 08/17/2020, Additional history exists COVID-19 Vaccine (3 - 2024-2 6 season) 2025 06/04/2021, 05/07/2021 COLORECTAL SCREENING 12/12/2028 12/12/2018, 12/13/19 19 Colorectal Cancer Screening 12/12/2028 Procedures * The patient is currently admitted. The information in this section might not be complete until the patient is discharged. Procedure Name Priority Date/Time Associated Diagnosis Comments COLONOSCOPY REPORT Routine 12/12/2018 2:02 PM CDT from Last 3 Months or Most Recently Relevant to Health Maintenance Results * COLONOSCOPY REPORT (12/12/2018 2:02 PM CDT) 12/12/2018 2:02 PM CDT Obed Caal MD GI PROCEDURE ORDERABLES Final Result [facility] from Last 3 Months or Most Recently Relevant to Health Maintenance Insurance MEDICAID [place] Care Teams Radiologic Electronic Specialist Relationship Specialty Start Date End Date Ramesh Lee MD [address] [phone] PCP - General Family Practice 12/13/17
--- OUTSIDE RECORDS SUMMARY | 2025-06-16 16:00 | XMS_ITS | Encounter Summary ---
Author Organization [facility] Address [address] [place] [address] Care Team Providers Care Police Judge Name Role Phone Ramesh Lee MD Primary Care Provider [phone] Encounter Details Date Type Department Care Team (Late st Contact Info) Description 03/25/2020 Ancillary Orders [facility] [address] [facility] [address] [place] [phone] Vielka Smith, DISTRIBUTION CENTER ADMINISTRATOR [address] [place] [address] Screening mammogram, encounter for Social History Tobacco Use Types Packs/Day Years Used Date Smoking Tobacco: Never Smokeless Tobacco: Never Alcohol Use Standard Drinks/Week Comments Not Currently 0 (1 standard drink = 0.6 oz pur e alcohol) occasionally Comments No Sex and Gender Information Value Date Recorded Sex Assigned at Not on file 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 No / Unsure 03/09/2020 10:33 AM CDT documented as of this encounter Plan of Treatment Not on file documented as of this encounter Results * MAMMO PRIOR STUDY (06/30/2016 10:00 AM CDT) Narrative 03/25/2020 10:01 AM CDT This exam was auto finalized to allow images to be scanned to PACS. us Vielka Smith DISTRIBUTION CENTER ADMINISTRATOR DIAGNOSTIC IMAGING ORDERABLES Fi nal Result documented in this encounter Visit Diagnoses Diagnosis Screening mammogram, encounter for Screening mammogram, encounter for documented in this encounter Care Teams Police Judge Relationship Specialty Start Date End Date Ramesh Lee MD [address] [phone] PCP - General Family Practice 12/13/17 documented as of this encounter
--- OUTSIDE RECORDS SUMMARY | 2025-06-16 16:00 | XMS_ITS | Clinical Summary ---
Author Organization [facility] Address [address] [place] [address] Care Team Providers Care Plant Ecologist Name Role Phone Ramesh Lee MD Primary Care Provider [phone] Allergies Active Allergy Reactions Criticality Noted Date Comments Codeine Itching Low 11/28/2017 Penicillins Hives High 10/13/2009 Medications lamoTRIgine (LaMICtal) 100 mg tablet Take 100 mg by mouth 2 times daily. Active Zonisamide (ZONEGRAN) 100 mg capsule Take 600 mg by mouth daily at bedtime. Active fluticasone propionate (FLONASE) 50 mcg/spray [place], Suspension nasal inhalerIndicatio ns:Allergic rhinitis, unspecified seasonality, unspecified trigger Administer 2 Sprays in each nostril daily. 16 Gram 2 1 Active cetirizine (ZyrTEC) 10 mg tabletIndication s:Allergic rhinitis, unspecified seasonality, unspecified trigger Take 1 Tablet (10 mg) by mouth daily. 30 Tablet 1 1 Active Active Problems Problem Noted Date Diagnosed Date RUQ abdominal pain 09/20/2018 Non-intractable cyclical vomiting with nausea Chronic diarrhea 09/20/2018 History of partial colectomy 07/11/2018 Elevated alkaline phosphatase level 01/15/2018 Perforated appendix 10/13/2009 S/P appendectomy 10/13/2009 Epilepsy 09/28/2009 Overview (09/28/2009): Grand mal seizures Last 05/[address] 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 Gender Identity Not on file Sexual Orientation Not on file Last Filed Vital Signs Vital Sign Reading Time Taken Comments Blood Pressure 120/88 03/06/2020 1:40 PM CDT Pulse 72 03/06/2020 1:40 PM CDT Temperature 36.4 C (97.5 F) 03/06/2020 1:40 PM CDT Respiratory Rate 12 03/06/2020 1:40 PM CDT Oxygen Saturation 99% 03/06/2020 1:40 PM CDT Inhaled Oxygen Concentration - - Weight 74.4 kg (164 lb) 03/06/2020 1:40 PM CDT Height 165.1 cm (5' 5 ) 03/06/2020 1:40 PM CDT Body Mass Index 27.29 03/06/2020 1:40 PM CDT Plan of Treatment Health Maintenance Due Date Last Done Comments DTAP/TDAP/TD VACCINES (1 - Tdap) 1986 HEPATITIS B VACCINES (1 of 3 - 19+ 3-dose series) 1986 Preventative Visit-Managed Medicaid 1986 BREAST CANCER SCREENING 2007 FIT-DNA Q 3 years 2012 FIT/FOBT Q 1 year 2012 Flex Sig/CT Colonography Q 5 years 2012 ZOSTER VACCINE (1 of 2) 2017 INFLUENZA VACCINE (#1) 2025 0, 03/06/2020, 07/10/2018 COLORECTAL SCREENING 12/12/2028 12/12/2018, 12/13/19 19 Colorectal Cancer Screening 12/12/2028 Procedures Procedure Name Priority Date/Time Associated Diagnosis Comments COLONOSCOPY REPORT 12/12/2018 2: 02 PM CDT from Last 3 Months or Most Recently Relevant to Health Maintenance Results * COLONOSCOPY REPORT (12/12/2018 2:02 PM CDT) Narrative Procedure Note Obed Caal MD - 12/12/2018 2:[address] [facility] GI Patient Name: Desiree Koch Procedure Date: 12/12/2018 Date of : 1965 Admit Type: Outpatient Age: 53 Attending MD: Obed Caal , Procedure: Colonoscopy Indications: Chronic diarrhea Providers: Cammie Santamaria, KEARA, Joel Alicea Referring MD: Ramesh Lee Medicines: See the other procedure note for documentation of the administered medications Complications: No immediate complications. Procedure: After I obtained informed consent, the scope was passed under direct vision. Throughout the procedure, the patient's blood pressure, pulse, and oxygen saturations were monitored continuously. The Colonoscope was introduced through the anus and advanced to the terminal ileum. The colonoscopy was performed without difficulty. The patient tolerated the procedure well. The quality of the bowel preparation was good. Estimated Blood Loss: Estimated blood loss was minimal. Findings: Internal hemorrhoids were found during retroflexion. The hemorrhoids were small. A 3 mm polyp was found in the ascending colon. The polyp was sessile. The polyp was removed with a cold biopsy forceps. Resection and retrieval were complete. Verification of patient identification for the specimen was done. Estimated blood loss was minimal. Biopsies for histology were taken with a cold forceps from the ascending colon for evaluation of microscopic colitis. Impression: - Internal hemorrhoids. - One 3 mm polyp in the ascending colon, removed with a cold biopsy forceps. Resected and retrieved. - Biopsies were taken with a cold forceps from the ascending colon for evaluation of microscopic colitis. Recommendation: - Await pathology results. Obed Caal, 12/12/2018 2:02:02 PM Number of Addenda: 0 Note Initiated On: 12/12/2018 1:46 PM Scope Withdrawal Time 0 hours 6 minutes 56 seconds Scope In: 1:47:46 PM Scope Out: 1:57:42 PM [id number] Obed Caal MD GI PROCEDURE ORDERABLES Final Result from Last 3 Months or Most Recently Relevant to Health Maintenance Insurance MEDICAID [place] Advance Directives For more information, please contact: [phone] * Full Code (Latest Code Status on File) Date Activated Date Inactivated Comments 12/12/2018 12:21 PM 12/12/2018 4:31 PM Care Teams Plant Ecologist Relationship Specialty Start Date End Date Ramesh Lee MD [address] [phone] PCP - General Family Practice 12/13/17
== END 2025-06-16 15:21 | disposition left against medical advice (07) ==
PROVIDERS: Emergency Provider Family Medicine; PCP Nurse Practitioner Family
DX: Z53.21 Procedure and treatment not carried out due to patient leaving prior to being seen by health care provider (principal)